=== PATIENT | female | born 1940 | race Caucasian/White ===

== ENCOUNTER → 2020-03-09 | Outpatient (CLI) | payer MEDICARE ==
--- NOTE | 2020-03-11 15:18 | PE ---
Nuclear medicine PET/CT HISTORY: Pancreatic carcinoma, initial Patient received 11.5 mCi F-18 FDG intravenously, delayed scanning was performed from the skull base to the mid thighs. Localization and attenuation correction CT scan was performed. Chest and neck: There is no suspicious uptake. Patient is cachectic. No cervical or supraclavicular a denopathy. No mediastinal, axillary, hilar adenopathy. Coronary artery calcifications are present. No pleural or pericardial effusion. No evident lung mass. ABDOMEN: Extensive pneumobilia is present. There is a stent present along the common bile duct. Ascit es is noted. Abnormal uptake noted within the pancreas corresponding to patient's pancreatic mass. Hy podensity are present within the colon may be due to radio dense medications or prior contrast study. Lack of intravenous abdominal fat may limit evaluation. Some uptake is noted in the suprapubic regio n which could possibly be related to urine activity. Osseous structures show no suspicious uptake. IMPRESSION: Findings compatible with patient's history of pancreatic carcinoma.
== END | disposition home or self-care (01) ==
LOC: RADPETMAIN 15:46
PROVIDERS: ATTEND Internal Medicine Hematology & Oncology
DX: C25.7 Malignant neoplasm of other parts of pancreas (principal)
CPT/HCPCS: 78815; A9552

== ENCOUNTER 2020-04-24 12:15 | Inpatient (IN) | payer MEDICARE ==
[2020-04-24] MEDS ORDERED: SODIUM CHLORIDE 0.9% 1,000 ML IV STA (12:48)
--- NOTE | 2020-04-24 12:51 | ED ---
General Adult HPI - General Chief complaint: Weakness Stated complaint: Weakness Time Seen by Provider: 04/24/20 12:20 Source: patient, EMS, RN notes reviewed, old records reviewed Mode of arrival: EMS Limitations: physical limitation - History of Present Illness Initial comments: This is a 79-year-old female who presents emergency department with past medical history of pancreatitis cancer. Patient has chemotherapy times one so far but she has become so weak that she can't take her second chemotherapy. Patient has not had no nausea occasional diarrhea but none recently. Patient denies any chest pain difficulty breathing shortness of breath per patient denies any headache patient denies numbness or focal weakness. Patient denies abdominal pa in patient denies any recent injury or trauma. Patient's only complaint is that she is overall extremely weak. Patient is not eating or drinking much according to the son. Patient's had no recent fever chills or cough. - Related Data Home Medications Medication Instructions Recorded Confirmed Aspirin EC [Ecotrin Low Dose] 81 mg PO DAILY 04/24/20 04/24/20 Atorvastatin Calcium [Lipitor] 20 mg PO DAILY 04/24/20 04/24/20 Lidocaine-Prilocaine Cream [Emla 1 applic TOPICAL DAILY 04/24/20 04/24/20 Cream 2.5%/2.5%] Metoprolol Succinate (ER) [Toprol 25 mg PO BID 04/24/20 04/24/20 Xl] amLODIPine [Norvasc] 2.5 mg PO DAILY 04/24/20 04/24/20 Allergies Allergy/AdvReac Type Severity Reaction Status Date / Time No Known Allergies Allergy Verified 04/24/20 13:39 Review of Systems ROS Statement: Those systems with pertinent positive or pertinent negative responses have been documented in the HPI. ROS Other: All systems not noted in ROS Statement are negative. Past Medical History Past Medical History: Hyperlipidemia, Hypertension Additional Past Medical History / Comment(s): pancreatic cancer History of Any Multi-Drug Resistant Organisms: None Reported Past Surgical History: Cholecystectomy, Hysterectomy Past Psychological History: No Psychological Hx Reported Smoking Status: Current every day smoker Past Alcohol Use History: None Reported Past Drug Use History: None Reported General Exam - General Exam Comments Initial Comments: GENERAL: Patient is cachectic. Patient is nontoxic and well-hydrated and is in no acute distress. ENT: Neck is soft and supple. No significant lymphadenopathy is noted. Oropharynx is clear. Moist mucous membranes. Neck has full range of motion without eliciting any pain. EYES: The sclera were anicteric and conjunctiva were pink and moist. Extraocular movements were intact and pupils were equal round and reactive to light. Eyelids were unremarkable. PULMONARY: Unlabored respirations. Good breath sounds bilaterally. No audible rales rhonchi or wheezing was noted. CARDIOVASCULAR: There is a regular rate and rhythm without any murmurs gallops or rubs. ABDOMEN: Soft and nontender with normal bowel sounds. SKIN: Skin is clear with no lesions or rashes and otherwise unremarkable. NEUROLOGIC: Patient is alert and oriented x3. Cranial nerves II through XII are grossly intact. Motor and sensory are also intact. Normal speech, volume and content. Symmetrical smile. MUSCULOSKELETAL: Normal extremities with adequate strength and full range of motion. LYMPHATICS: No significant lymphadenopathy is noted PSYCHIATRIC: Normal psychiatric evaluation. Limitations: physical limitation Course Vital Signs 04/24/20 04/24/20 12:18 15:00 Temperature 97.8 F 96 F L Pulse Rate 74 88 Respiratory 18 18 Rate Blood Pressure 107/79 112/91 O2 Sat by Pulse 95 98 Oximetry Medical Decision Making - Medical Decision Making EKG shows normal sinus rhythm at 93 bpm HI interval is 142 QRS is 146 QT interval 432 2 TC is 537. Patient's EKG shows a left bundle branch block Chest x-ray shows bilateral pleural effusions and possible infiltrate. I started the patient 2 g of Rocephin. Patient's straight catheter patient received an initial 1 L of fluid she will be receiving more fluid on the floor. [facility] the patient wrote admitting orders. - Lab Data Result diagrams: 04/24/20 13:03 04/24/20 13:03 Lab Results 04/24/20 04/24/20 04/24/20 Range/Units 13:03 13:03 13:03 WBC 17.2 H (3.8-10.6) k/uL RBC 3.49 L (3.80-5.40) m/uL Hgb 11.6 (11.4-16.0) gm/dL Hct 32.6 L (34.0-46.0) % MCV 93.4 (80.0-100.0) fL MCH 33.1 (25.0-35.0) pg MCHC 35.4 (31.0-37.0) g/dL RDW 14.6 (11.5-15.5) % Plt Count 124 L (150-450) k/uL MPV 8.4 Neutrophils % 94 % Lymphocytes % 3 % Monocytes % 2 % Eosinophils % 0 % Basophils % 1 % Neutrophils # 16.2 H (1.3-7.7) k/uL Lymphocytes # 0.5 L (1.0-4.8) k/uL Monocytes # 0.3 (0-1.0) k/uL Eosinophils # 0.0 (0-0.7) k/uL Basophils # 0.1 (0-0.2) k/uL PT 11.2 (9.0-12.0) sec INR 1.1 (<1.2) APTT 22.1 (22.0-30.0) sec Sodium 137 (137-145) mmol/L Potassium 3.2 L (3.5-5.1) mmol/L Chloride 104 (98-107) mmol/L Carbon Dioxide 31 H (22-30) mmol/L Anion Gap 2 mmol/L BUN 64 H (7-17) mg/dL Creatinine 0.79 (0.52-1.04) mg/dL Est GFR (CKD-EPI)AfAm 84 (>60 ml/min/1.73 sqM) Est GFR (CKD-EPI)NonAf 73 (>60 ml/min/1.73 sqM) Glucose 96 (74-99) mg/dL Plasma Lactic Acid [place] (0.7-2.0) mmol/L Calcium 8.2 L (8.4-10.2) mg/dL Magnesium 1.9 (1.6-2.3) mg/dL Total Bilirubin 0.8 (0.2-1.3) mg/dL AST 43 H (14-36) U/L ALT 27 (4-34) U/L Alkaline Phosphatase 103 (38-126) U/L Troponin I (0.000-0.034) ng/mL Total Protein 4.8 L (6.3-8.2) g/dL Albumin 2.5 L (3.5-5.0) g/dL Amylase <30 L (30-110) U/L Lipase 19 L (23-300) U/L Urine Color Urine Appearance (Clear) Urine pH (5.0-8.0) Ur Specific [place] (1.001-1.035) Urine Protein (Negative) Urine Glucose (UA) (Negative) Urine Ketones (Negative) Urine Blood (Negative) Urine Nitrite (Negative) Urine Bilirubin (Negative) Urine Urobilinogen (<2.0) mg/dL Ur Leukocyte Esterase (Negative) 04/24/20 04/24/20 04/24/20 Range/Units 13:03 13:03 14:20 WBC (3.8-10.6) k/uL RBC (3.80-5.40) m/uL Hgb (11.4-16.0) gm/dL Hct (34.0-46.0) % MCV (80.0-100.0) fL MCH (25.0-35.0) pg MCHC (31.0-37.0) g/dL RDW (11.5-15.5) % Plt Count (150-450) k/uL MPV Neutrophils % % Lymphocytes % % Monocytes % % Eosinophils % % Basophils % % Neutrophils # (1.3-7.7) k/uL Lymphocytes # (1.0-4.8) k/uL Monocytes # (0-1.0) k/uL Eosinophils # (0-0.7) k/uL Basophils # (0-0.2) k/uL PT (9.0-12.0) sec INR (<1.2) APTT (22.0-30.0) sec Sodium (137-145) mmol/L Potassium (3.5-5.1) mmol/L Chloride (98-107) mmol/L Carbon Dioxide (22-30) mmol/L Anion Gap mmol/L BUN (7-17) mg/dL Creatinine (0.52-1.04) mg/dL Est GFR (CKD-EPI)AfAm (>60 ml/min/1.73 sqM) Est GFR (CKD-EPI)NonAf (>60 ml/min/1.73 sqM) Glucose (74-99) mg/dL Plasma Lactic Acid [place] 1.8 (0.7-2.0) mmol/L Calcium (8.4-10.2) mg/dL Magnesium (1.6-2.3) mg/dL Total Bilirubin (0.2-1.3) mg/dL AST (14-36) U/L ALT (4-34) U/L Alkaline Phosphatase (38-126) U/L Troponin I 0.016 (0.000-0.034) ng/mL Total Protein (6.3-8.2) g/dL Albumin (3.5-5.0) g/dL Amylase (30-110) U/L Lipase (23-300) U/L Urine Color Yellow Urine Appearance Clear (Clear) Urine pH 5.5 (5.0-8.0) Ur Specific [place] 1.021 (1.001-1.035) Urine Protein Trace H (Negative) Urine Glucose (UA) Negative (Negative) Urine Ketones Negative (Negative) Urine Blood Negative (Negative) Urine Nitrite Negative (Negative) Urine Bilirubin Negative (Negative) Urine Urobilinogen <2.0 (<2.0) mg/dL Ur Leukocyte Esterase Negative (Negative) Disposition Clinical Impression: Pneumonia, Pleural effusion, Dehydration Disposition: ADMITTED IP TO THIS [facility] Referrals: Erica Monroe DO [Primary Care Provider] - 1-2 days Time of Disposition: 15:08
[2020-04-24 13:24] LABS: Basophils # (A) 0.1 k/uL (0-0.2); Basophils % (A) 1 %; Eosinophils % (A) 0 %; HCT 32.6 % (34.0-46.0); HGB 11.6 gm/dL (11.4-16.0); Lymphocytes # (A) 0.5 k/uL (1.0-4.8); Lymphocytes % (A) 3 %; MCH 33.1 pg (25.0-35.0); MCHC 35.4 g/dL (31.0-37.0); MCV 93.4 fL (80.0-100.0); Mean Platelet Volume 8.4; Monocytes # (A) 0.3 k/uL (0-1.0); Monocytes % (A) 2 %; Neutrophils # (A) 16.2 k/uL (1.3-7.7); Neutrophils % (A) 94 %; Platelet Count 124 k/uL (150-450); RBC 3.49 m/uL (3.80-5.40); RDW 14.6 % (11.5-15.5); WBC 17.2 k/uL (3.8-10.6)
--- NOTE | 2020-04-24 13:34 | XR ---
EXAMINATION TYPE: XR chest 2V DATE OF EXAM: 04/24/2020 COMPARISON: PET/CT 03/09/2020 HISTORY: Weakness, pancreatic cancer TECHNIQUE: Frontal and lateral views of the chest are obtained. FINDINGS: Blunting the posterior costophrenic angles is present. There is underlying emphysema. Aort a is dense. There is a port in the right pectoral region coursing via right jugular approach, distal tip overlying superior vena cava. No evident pneumothorax. Heart size is within normal limits. Biliar y stent is in place. Surgical clips are present in the right upper quadrant. IMPRESSION: Interval development of bilateral pleural effusions and probable associated atelectasis, correlate to exclude pneumonia.
[2020-04-24 13:39] LABS: INR 1.1 (<1.2); Partial Thromboplastin Time 22.1 sec (22.0-30.0); Prothrombin Time 11.2 sec (9.0-12.0)
[2020-04-24 13:42] LABS: ALT 27 U/L (4-34); AST 43 U/L (14-36); African American GFR (CKD) 84 (>60 ml/min/1.73 sqM); Albumin 2.5 g/dL (3.5-5.0); Alkaline Phosphatase 103 U/L (38-126); Amylase <30 U/L (30-110); Anion Gap 2 mmol/L; Blood Urea Nitrogen 64 mg/dL (7-17); Calcium 8.2 mg/dL (8.4-10.2); Carbon Dioxide 31 mmol/L (22-30); Chloride 104 mmol/L (98-107); Glucose 96 mg/dL (74-99); Lipase 19 U/L (23-300); Magnesium 1.9 mg/dL (1.6-2.3); Non-African American GFR(CKD) 73 (>60 ml/min/1.73 sqM); Potassium 3.2 mmol/L (3.5-5.1); Sodium 137 mmol/L (137-145); Total Bilirubin 0.8 mg/dL (0.2-1.3); Total Protein 4.8 g/dL (6.3-8.2)
[2020-04-24 14:44] LABS: Appearance,Urine Clear (Clear); Bilirubin,Urine Negative (Negative); Blood,Urine Negative (Negative); Color,Urine Yellow; Glucose,Urine (UA) Negative (Negative); Ketones,Urine Negative (Negative); Leukocyte Esterase,Urine Negative (Negative); Nitrite,Urine Negative (Negative); PH, Urine 5.5 (5.0-8.0); Protein,Urine Trace (Negative); Specific Gravity,Urine 1.021 (1.001-1.035); Urobilinogen,Urine <2.0 mg/dL (<2.0)
[2020-04-24] MEDS ORDERED: cefTRIAXone IN SWFI 1,000 MG/10 ML SYRINGE IVP STA (14:58)
[2020-04-24] MEDS ORDERED: AZITHROMYCIN 500 MG in SODIUM CHLORIDE 0.9% 250 ML IVPB STA (15:10)
[2020-04-24] MEDS ORDERED: PNEUMONIA PROTOCOL UTILIZED 1 EACH MISC PO PRN (15:10)
[2020-04-24] MEDS: SODIUM CHLORIDE 0.9% 1,000 ML IV SCH (16:17)
[2020-04-24] MEDS ORDERED: IOPAMIDOL CONTRAST (ORAL USE) VIAL PO PRN (19:12)
[2020-04-24] MEDS ORDERED: Phosphorus Replacement Protoco 1 EACH MISC MISCELLANE PRN (19:14)
[2020-04-24] MEDS ORDERED: ALPRAZolam 0.25 MG TAB PO PRN (19:14)
[2020-04-24] MEDS ORDERED: Magnesium Replacement Protocol 1 EACH MISC MISCELLANE PRN (19:14)
[2020-04-24] MEDS: METOPROLOL SUCCINATE (ER) 25 MG TAB.ER.24H PO SCH (20:13)
[2020-04-24] MEDS: PANTOPRAZOLE 40 MG/10 ML VIAL IVP SCH (20:14)
[2020-04-24] MEDS: CEFEPIME 2 GM in SODIUM CHLORIDE 0.9% 100 ML IVPB SCH (20:14)
[2020-04-24] MEDS: HEPARIN SODIUM,PORCINE 5,000 UNIT/ML 1 ML VIAL SQ SCH (20:15)
--- NOTE | 2020-04-24 20:22 | CT ---
EXAMINATION TYPE: CT ChestAbdPelvis wo con DATE OF EXAM: 04/24/2020 COMPARISON: 03/09/2020 HISTORY: weakness, confusion. current pancreatic ca pt. CT DLP: 374.1 mGycm Automated exposure control for dose reduction was used. Images obtained from the thoracic inlet to the floor the pelvis with no contrast. There are bilateral pleural effusions. There is bilateral lower lobe pulmonary infiltrates and atelec tasis. Thoracic aorta is atheromatous. Heart size is normal. There are no hilar masses. Liver is relatively small and irregular. Spleen is intact. Stomach is intact. There is massive abdomi nal ascites. There is biliary stent noted. There is some air in the anterior biliary tree. The bile d ucts are not dilated. There is increased density in the anterior aspect of the pancreas consistent wi th mass at the pancreatic head that measures approximately 4 cm. Stomach has normal size. The kidneys show no hydronephrosis. There is no sign of retroperitoneal adenopathy. Exam limited by l ack of contrast. Bladder distends smoothly. There is low attenuation in the subcutaneous tissues cons istent with anasarca. Thoracic and lumbar spine appear intact. There is no compression fracture. Ther e is multilevel spondylotic changes. Sternum is intact. The bony pelvis is intact. IMPRESSION: Moderate-sized bilateral pleural effusions are new compared to old exam. Bilateral lower lobe pulmona ry infiltrates and atelectasis are new compared to old exam. Massive abdominal ascites probably increased compared to old exam. Pancreatic head mass unchanged. Singh bcutaneous edema and anasarca appear new.
--- NOTE | 2020-04-24 22:54 | HP ---
HISTORY AND PHYSICAL CHIEF COMPLAINT: Weakness and weight loss. HISTORY OF PRESENT ILLNESS: This 79-year-old woman with a past medical history of multiple medical problems including history of pancreatic cancer, obtaining chemotherapy, hypertension, hyperlipidemia, history of cholecystectomy, hysterectomy, being followed by Dr. Erica Monroe and Dr. Ivory in the outpatient setting, was apparently complaining of significant weight loss and weakness. The patient was so weak that the patient is unable to get chemotherapy. Patient also nauseated. Patient lost about 80 pounds and the patient came to [facility] and was admitted for further evaluation and treatment. Patient is extremely emaciated with BMI of 14.6, and the patient admitted for further evaluation and treatment. White count is elevated to 17.2. Potassium is 3.2. Patient is started on empiric antibiotic at this time. The UA is unremarkable. The chest x- ray which I reviewed personally showed some bilateral pleural effusion, probably associated atelectasis also. Pneumonia needs to be correlated. The white count is also elevated. There is no history of fever, rigors, chills at this time. No history of contact with COVID. Patient has been isolated for 8 months, according to her. PAST MEDICAL HISTORY: History of hypertension, hyperlipidemia, history of pancreatic cancer. MEDICATIONS ARE: Ecotrin, metoprolol, EMLA cream, Lipitor. Norvasc. ALLERGIES: None. FAMILY HISTORY: No history of heart disease or strokes in family. SOCIAL HISTORY: History of smoking. REVIEW OF SYSTEMS: ENT: No diminished vision. No diminished hearing. CARDIOVASCULAR as mentioned earlier. RESPIRATION as mentioned earlier. GI: As mentioned earlier. no dysuria. Nervous System as mentioned earlier. Allergy/Immunology: No asthma or hayfever. MUSCULOSKELETAL: As mentioned earlier. HEMATOLOGY/ONCOLOGY as mentioned earlier. ENDOCRINE: No history of diabetes or hypothyroid. Constitutional: As mentioned earlier. Dermatology negative. Rheumatology negative. Psychiatric: As mentioned earlier. PHYSICAL EXAMINATION: Alert and oriented x3. Pulse is 88. Blood pressure 129/80, respiration 18, temperature 98 degrees. Pulse ox 98% on 2 L. HEENT: Conjunctivae normal. Oral mucosa moist. NECK is no jugular venous distention. No carotid bruit. No lymph node enlargement. CARDIOVASCULAR system: S1, S2 muffled. RESPIRATION: Breath sounds diminished in the bases. A few scattered rhonchi and crackles. ABDOMEN is scaphoid. Mild diffuse distention present. No mass palpable. LEGS: No edema. No swelling. NERVOUS SYSTEM: Higher functions as mentioned earlier. Moves all 4 limbs. No focal motor or sensory deficits. LYMPHATICS: No lymph nodes palpable in the neck, axillae or groin. SKIN: No ulcer. No rash and no bleeding. JOINTS: No active deforming arthropathy. LABS: At this time shows WBC 7.2, hemoglobin 11.7, sodium 137, potassium 3.2, albumin is 2.5, total protein is 4.8. ASSESSMENT: 1. Significant wasting and weakness and dehydration secondary to pancreatic cancer. 2. Pancreatic cancer, on chemotherapy. 3. Bilateral pleural effusion and possibly pneumonia. 4. Increased WBC, possible sepsis. 5. Thrombocytopenia. 6. Hypokalemia. 7. Increased BUN. 8. Hypoalbuminemia with severe protein calorie malnutrition with body mass index of 14.6 and increased AST. 9. Hypertension. 10.Hyperlipidemia. 11.History of cholecystectomy. 12.History of nicotine dependence. 13.FULL CODE. RECOMMENDATIONS AND DISCUSSION: This 79-year-old woman who presented with multiple complex medical issues, we will monitor the patient closely, continue the current medications, management and symptomatic treatment. Initiate broad-spectrum IV antibiotics. Otherwise obtain cultures. I would recommend a CT scan of chest, abdomen and pelvis and consult Dr. Ivory. Prognosis guarded because of multiple complex medical issues. Further recommendations to follow. A copy of dictation forwarded to Dr. Erica Monroe who is the primary care physician. See orders for details. DVT prophylaxis. Home medications will be continued. MMODL / IJN: [id number] /
[2020-04-25] MEDS: SODIUM CHLORIDE 0.9% 1,000 ML IV SCH ×2 (00:36→12:23)
[2020-04-25 01:04] LABS: ABG Base Excess 1.5 mmol/L; ABG HCO3 25 mmol/L (21-25); ABG Oxygen Saturation 99.8 % (94-97); ABG PCO2 37 mmHg (35-45); ABG PH 7.45 (7.35-7.45); ABG PO2 165 mmHg (83-108); ABG TCO2 27 mmol/L (19-24); Allen Test Performed? Yes
[2020-04-25] MEDS: CEFEPIME 2 GM in SODIUM CHLORIDE 0.9% 100 ML IVPB SCH ×2 (05:00→11:39)
[2020-04-25 05:40] LABS: Basophils # (A) 0.1 k/uL (0-0.2); Basophils % (A) 0 %; Eosinophils # (A) 0.1 k/uL (0-0.7); Eosinophils % (A) 0 %; HCT 34.5 % (34.0-46.0); HGB 11.8 gm/dL (11.4-16.0); Lymphocytes # (A) 0.6 k/uL (1.0-4.8); Lymphocytes % (A) 3 %; MCH 32.1 pg (25.0-35.0); MCHC 34.2 g/dL (31.0-37.0); MCV 93.9 fL (80.0-100.0); Mean Platelet Volume 9.2; Monocytes # (A) 0.3 k/uL (0-1.0); Monocytes % (A) 1 %; Neutrophils # (A) 19.7 k/uL (1.3-7.7); Neutrophils % (A) 95 %; Platelet Count 136 k/uL (150-450); RBC 3.67 m/uL (3.80-5.40); RDW 15.3 % (11.5-15.5); WBC 20.8 k/uL (3.8-10.6)
[2020-04-25] MEDS: ASPIRIN 81 MG PO SCH (08:25)
[2020-04-25] MEDS: ATORVASTATIN 20 MG TAB PO SCH (08:25)
[2020-04-25] MEDS: HEPARIN SODIUM,PORCINE 5,000 UNIT/ML 1 ML VIAL SQ SCH ×2 (08:25→21:13)
[2020-04-25] MEDS: PANTOPRAZOLE 40 MG/10 ML VIAL IVP SCH ×2 (08:26→21:12)
[2020-04-25] MEDS: METOPROLOL SUCCINATE (ER) 25 MG TAB.ER.24H PO SCH ×2 (08:26→21:13)
--- NOTE | 2020-04-25 08:43 | XR ---
EXAMINATION TYPE: XR chest 1V DATE OF EXAM: 04/25/2020 COMPARISON: 04/24/2020 HISTORY: Shortness of breath TECHNIQUE: Single frontal view of the chest is obtained. FINDINGS: There is diffuse bilateral pleural-parenchymal changes which appears progressed from the p rior exam. Mediport catheter seen with the tip overlying the SVC. No sizable pneumothorax. Hyperinfla tion suggests COPD. Diffuse osteopenia with arthropathy of the shoulders. Hypertrophic and degenerati ve changes of the spine. IMPRESSION: 1. COPD with diffuse bilateral pleural-parenchymal changes correlate for CHF versus diffuse pneumonia .
[2020-04-25] MEDS: LIDOCAINE-PRILOCAINE 2.5-2.5% CREAM 5 GM TUBE TOPICAL SCH (09:29)
[2020-04-25 10:56] LABS: African American GFR (CKD) 101.2 (60.0-200.0); Anion Gap 12.8 mmol/L (4.00-12.00); BUN/Creat Ratio 118.33 Ratio (12.00-20.00); Calcium 8.2 mg/dL (8.7-10.3); Carbon Dioxide 22.2 mmol/L (21.6-31.8); Magnesium 1.8 mg/dL (1.5-2.4); Non-African American GFR(CKD) 87.3 (60.0-200.0); Potassium 3.7 mmol/L (3.5-5.5)
[2020-04-25 11:12] LABS: Glucose,Whole Blood 66 mg/dL (75-99)
[2020-04-25] MEDS: THIAMINE 100 MG TAB PO SCH (11:35)
[2020-04-25] MEDS: MULTIVITAMINS, THERA 1 EACH TAB PO SCH (11:35)
[2020-04-25] MEDS: FOLIC ACID 1 MG TAB PO SCH (11:35)
[2020-04-25 11:37] LABS: Glucose,Whole Blood 61 mg/dL (75-99)
[2020-04-25] MEDS: MEGESTROL 400 MG/10 ML CUP PO SCH (11:37)
[2020-04-25] MEDS: DEXTROSE 5%-0.9% NACL 1,000 ML IV SCH (11:50)
[2020-04-25 11:55] LABS: Glucose,Whole Blood 61 mg/dL (75-99)
[2020-04-25 12:16] LABS: Glucose,Whole Blood 49 mg/dL (75-99)
[2020-04-25 12:20] LABS: Glucose,Whole Blood 58 mg/dL (75-99)
[2020-04-25 12:37] LABS: Glucose,Whole Blood 228 mg/dL (75-99)
[2020-04-25 13:15] LABS: Glucose,Whole Blood 76 mg/dL (75-99)
[2020-04-25 15:03] LABS: Albumin 3.1 g/dL (3.80-4.90); Calcium 7.6 mg/dL (8.7-10.3); Total Bilirubin 0.7 mg/dL (0.3-1.2); Total Protein 4.7 g/dL (6.2-8.2)
--- NOTE | 2020-04-25 16:37 | CT ---
EXAMINATION TYPE: CT brain wo con DATE OF EXAM: 04/25/2020 COMPARISON: None HISTORY: 79-year-old female with confusion TECHNIQUE: Examination was done in axial plane without intravenous contrast. Coronal and sagittal r econstructions performed. CT DLP: 1165 mGycm Automated exposure control for dose reduction was used. FINDINGS: There is no evidence of acute intracranial hemorrhage, acute ischemic changes, mass, mass-effect, or extra-axial fluid collection. There is no effacement of cerebral sulci or basal subarachnoid cister ns. Mild ventricular prominence secondary to central cerebral atrophy. Additional mild to moderate ce rebral cortical atrophy. Mild to moderate patchy periventricular white matter hypodensities in both c erebral hemispheres. Benign basal ganglionic calcifications on both sides. At this current calcificat ions within the carotid siphons. Partially empty sella. There is no midline shift. Sylvester-white matter distinction is preserved. Paranasal sinuses and mastoid air cells are well pneumatized. Slight leftward nasal septal deviation. Orbits and globes are intact. IMPRESSION: Mild to moderate generalized atrophy and patchy changes of chronic small vessel ischemic disease. No acute intracranial abnormality seen.
[2020-04-25] MEDS: AZITHROMYCIN 500 MG TAB PO SCH ×2 (17:11→17:12)
[2020-04-25] MEDS: FUROSEMIDE 10 MG/ML 4 ML VIAL IV SCH (17:11)
[2020-04-25 17:19] LABS: Glucose,Whole Blood 149 mg/dL (75-99)
--- NOTE | 2020-04-25 18:19 | PN ---
PROGRESS NOTE DATE OF SERVICE: 04/25/2020 This 79-year-old woman who was admitted with significant wasting and weakness and dehydration secondary to pancreatic cancer, is being closely monitored. The patient continues to be confused also. Multiple consultants following the patient closely. Abdominal paracentesis is also planned at this time. The CT scan of the brain showed [id number] atrophy without any acute changes. The most recent chest x-ray which was personally reviewed by me showed COPD with diffuse bilateral pleural parenchymal changes also. The patient is extremely emaciated. Body mass index of 14.6. p.o. intake also found to be extremely low. Discussed with dietitian. Chest x-ray showed some CHF also. Past medical history reviewed. REVIEW OF SYSTEMS: Cardiovascular system: No angina or palpitations. Respiration: As mentioned earlier. GI as mentioned earlier. : No dysuria. NERVOUS SYSTEM: As mentioned earlier. CURRENT MEDICATIONS: Reviewed and include: Xanax. Aspirin. Lipitor, Zithromax, Cefepime, folic acid, Megace, Protonix, vitamin B1. PHYSICAL EXAM: Patient is alert and oriented x2. Pulse 103. Blood pressure is 93/61, respirations 16, temp is normal. Pulse ox 94% on 4 L. HEENT: Conjunctivae normal. NECK: No JVD. CARDIOVASCULAR: S1, S2 muffled. RESPIRATION: Breath sounds diminished in the bases. Bilateral scattered rhonchi and crackles. ABDOMEN: Soft. Nontender. LEGS are no edema. No swelling. LABS: Accu-Cheks are WBC 20.8 and sodium 142, potassium 3.7, and total protein is 4.7. Calcium is 7.6. Covid -19 is negative. Troponin 0.016. ASSESSMENT: 1. Significant wasting and weakness and dehydration, secondary to pancreatic cancer. 2. Pancreatic cancer, on chemotherapy. 3. Bilateral pleural effusion, possible pneumonia. 4. Rule out congestive heart failure. 5. Increased WBC, possible sepsis. 6. Thrombocytopenia. 7. Hypokalemia. 8. Increased BUN. 9. Hypoalbuminemia with severe protein calorie malnutrition with body mass index of 14.6. 10.Increased AST. 11.Hypertension. 12.Gait dysfunction. 13.Hyperlipidemia. 14.Cholecystectomy. 15.History of nicotine dependence. 16.Change in mental status, acute metabolic encephalopathy multifactorial. 17.FULL CODE. RECOMMENDATIONS AND DISCUSSION: This 79-year-old gentleman woman presented with multiple medical issues, we will monitor the patient closely, continue the current medications, management and symptomatic treatment. Otherwise at this time, continue with broad-spectrum IV antibiotics. I would also recommend BNP and 2D echo with Doppler to rule out the possibility of CHF. Otherwise, I would recommend stop IV fluids. Lasix 20 mg. Continue to monitor. Guarded prognosis because of multiple complex medical issues. Further recommendations to follow. MMODL / IJN: [id number] /
[2020-04-25 20:07] LABS: Glucose,Whole Blood 235 mg/dL (75-99)
[2020-04-25 22:04] LABS: Appearance,BF Clear; Color,BF Colorless; Nucleated Cells, Body Fluid 16 /uL; RBC, Body Fluid 72 /uL
--- NOTE | 2020-04-25 22:57 | P.CONS ---
History of Present Illness - Reason for Consult Consult date: 04/25/20 Cancer Requesting physician: Abhishek Conway - Chief Complaint Decreased appetite, weakness - History of Present Illness Ms Delacruz is a pleasant white female, with overall well-controlled medical problems and poor performance status at baseline. The patient states that she is mostly confined to home since 08/11 because of the coronal virus related lockdown. She states that during this period activity level was less than and her appetite had diminished. She attributed this to lack of activity and resultant decreased appetite. She states that she went for her regular mammogram on 02/09/20. The mammogram itself was negative. The patient, however, that she had lost significant amount of body fat from her breast, as well as the rest of the body. She stated that she was actually having some pain and discomfort in her legs on walking, which was new for her. She addressed this with her primary care physician, Dr. Emerson, labs on 02/14/20 were performed, showing elevated bilirubin of 2.5, alkaline phosphatase of 711, ALT of 84 and AST of 64. Creatinine was 0.6. Chest x-ray from 02/14/20 was negative. She had CT of the abdomen and pelvis on 02/17/20 that showed diffuse intra-and extrahepatic biliary ductal dilatation with moderate dilation of the pancreatic duct along the body and tail segments. There was a 1.9 x 2.5 x 2.4 cm mass in the region of the pancreatic head. Referral was made to his office. At that time. The patient was referred to [facility] for an EUS and ERCP. She was found to have a deformity in the gastric antrum with congested and thickened folds. Pancreatic mass measured 3.5 x 3.2 cm with encasement of the SMA and celiac trunk as well as abutment of the portal vein. Biopsies were positive for adenocarcinoma. The patient also had stent placement to relieve significant distal CBD pancreatic duct obstruction. She was seen for initial consult on 03/16/20. Prior to this visit she had a PET scan done on 03/09/20. This showed uptake only in the pancreatic head mass with no evidence of metastatic disease. She denied any prior history of malignancy. Performance status prior to the onset of current symptoms was normal. She has a history of smoking about half-1 pack per day, for greater than 50 years. after detailed discussion of options, the patient opted for aggressive chemotherapy with mFOLFIRINOX. After port placement, she started then on 04/09/20 and is status post 1 cycle. She initially tolerated well. Last seen in office on 04/17/[address] Ivory. She presents with increased intolerance post treatment, decreased appetite, weakness, fatigue. Increased Abdominal Ascites on imaging. Review of Systems All systems: negative Constitutional: Reports as per HPI Past Medical History Past Medical History: Hyperlipidemia, Hypertension Additional Past Medical History / Comment(s): pancreatic cancer History of Any Multi-Drug Resistant Organisms: None Reported Past Surgical History: Cholecystectomy, Hysterectomy Past Anesthesia/Blood Transfusion Reactions: No Reported Reaction Past Psychological History: No Psychological Hx Reported Smoking Status: Former smoker Past Alcohol Use History: None Reported Past Drug Use History: None Reported - Past Family History Father Family Medical History: No Reported History Son(s) Family Medical History: No Reported History Medications and Allergies Home Medications Medication Instructions Recorded Confirmed Type Aspirin EC [Ecotrin Low Dose] 81 mg PO DAILY 04/24/20 04/24/20 History Atorvastatin Calcium [Lipitor] 20 mg PO DAILY 04/24/20 04/24/20 History Lidocaine-Prilocaine Cream [Emla 1 applic TOPICAL DAILY 04/24/20 04/24/20 History Cream 2.5%/2.5%] Metoprolol Succinate (ER) [Toprol 25 mg PO BID 04/24/20 04/24/20 History Xl] amLODIPine [Norvasc] 2.5 mg PO DAILY 04/24/20 04/24/20 History Allergies Allergy/AdvReac Type Severity Reaction Status Date / Time No Known Allergies Allergy Verified 04/24/20 13:39 Physical Exam Vitals: Vital Signs Temp Pulse Pulse Resp BP BP BP 04/25/20 20:00 97.6 F 115 H 18 101/72 04/25/20 18:05 105 H 127/86 04/25/20 17:50 103 H 130/85 04/25/20 17:35 107 H 114/71 04/25/20 17:20 109 H 138/83 04/25/20 17:05 97.4 F L 98 18 118/70 04/25/20 15:45 103 H 16 93/61 04/25/20 15:31 16 90/65 04/25/20 15:15 98 16 91/67 04/25/20 15:00 104 H 16 89/59 04/25/20 14:04 97.7 F 101 H 18 129/80 04/25/20 10:04 95/52 04/25/20 09:41 97.4 F L 04/25/20 07:42 96.4 F L 90 17 88/63 04/25/20 04:25 98 16 116/80 04/25/20 03:00 96.6 F L 87 16 119/80 04/25/20 02:10 96.8 F L 97 16 106/83 04/25/20 01:24 99.5 F 85 16 96/68 04/25/20 00:11 95.5 F L 04/24/20 23:16 89 16 106/86 Pulse Ox 04/25/20 20:00 99 04/25/20 18:05 100 04/25/20 17:50 04/25/20 17:35 04/25/20 17:20 04/25/20 17:05 04/25/20 15:45 95 04/25/20 15:31 04/25/20 15:15 95 04/25/20 15:00 94 L 04/25/20 14:04 04/25/20 10:04 04/25/20 09:41 04/25/20 07:42 95 04/25/20 04:25 93 L 04/25/20 03:00 93 L 04/25/20 02:10 98 04/25/20 01:24 97 04/25/20 00:11 04/24/20 23:16 Intake and Output 04/25/20 04/25/20 04/25/20 06:59 14:59 22:59 Other: Voiding Method Indwelling Catheter Weight 38.555 kg - Constitutional General appearance: cooperative - EENT Eyes: EOMI, PERRLA ENT: hard of hearing, NA/AT - Respiratory Respiratory: bilateral: diminished - Cardiovascular Rhythm: regularly irregular leg Peripheral Edema: bilateral: 1+ - Gastrointestinal General gastrointestinal: distended, soft, tenderness - Integumentary Integumentary: pale - Neurologic non focal - Musculoskeletal Musculoskeletal: generalized weakness Results CBC & Chem 7: 04/25/20 05:13 04/25/20 05:13 Labs: Abnormal Lab Results - Last 24 Hours (Table) 04/25/20 04/25/20 04/25/20 Range/Units 00:58 05:13 05:13 WBC 20.8 H (3.8-10.6) k/uL RBC 3.67 L (3.80-5.40) m/uL Plt Count 136 L (150-450) k/uL Neutrophils # 19.7 H (1.3-7.7) k/uL Lymphocytes # 0.6 L (1.0-4.8) k/uL ABG pO2 165 H (83-108) mmHg ABG Total CO2 27 H (19-24) mmol/L ABG O2 Saturation 99.8 H (94-97) % Anion Gap 12.80 H (4.00-12.00) mmol/L BUN 71.0 H (9.0-27.0) mg/dL BUN/Creatinine Ratio 118.33 H (12.00-20.00) Ratio Glucose 44 L* (70-110) mg/dL POC Glucose (mg/dL) (75-99) mg/dL Calcium 8.2 L (8.7-10.3) mg/dL AST (13-35) U/L Total Protein (6.2-8.2) g/dL Albumin (3.80-4.90) g/dL 04/25/20 04/25/20 04/25/20 Range/Units 05:13 11:11 11:35 WBC (3.8-10.6) k/uL RBC (3.80-5.40) m/uL Plt Count (150-450) k/uL Neutrophils # (1.3-7.7) k/uL Lymphocytes # (1.0-4.8) k/uL ABG pO2 (83-108) mmHg ABG Total CO2 (19-24) mmol/L ABG O2 Saturation (94-97) % Anion Gap (4.00-12.00) mmol/L BUN (9.0-27.0) mg/dL BUN/Creatinine Ratio (12.00-20.00) Ratio Glucose (70-110) mg/dL POC Glucose (mg/dL) 66 L 61 L (75-99) mg/dL Calcium 7.6 L (8.7-10.3) mg/dL AST 55 H (13-35) U/L Total Protein 4.7 L (6.2-8.2) g/dL Albumin 3.10 L (3.80-4.90) g/dL 04/25/20 04/25/20 04/25/20 Range/Units 11:53 12:06 12:18 WBC (3.8-10.6) k/uL RBC (3.80-5.40) m/uL Plt Count (150-450) k/uL Neutrophils # (1.3-7.7) k/uL Lymphocytes # (1.0-4.8) k/uL ABG pO2 (83-108) mmHg ABG Total CO2 (19-24) mmol/L ABG O2 Saturation (94-97) % Anion Gap (4.00-12.00) mmol/L BUN (9.0-27.0) mg/dL BUN/Creatinine Ratio (12.00-20.00) Ratio Glucose (70-110) mg/dL POC Glucose (mg/dL) 61 L 49 L 58 L (75-99) mg/dL Calcium (8.7-10.3) mg/dL AST (13-35) U/L Total Protein (6.2-8.2) g/dL Albumin (3.80-4.90) g/dL 04/25/20 04/25/20 04/25/20 Range/Units 12:35 17:16 20:06 WBC (3.8-10.6) k/uL RBC (3.80-5.40) m/uL Plt Count (150-450) k/uL Neutrophils # (1.3-7.7) k/uL Lymphocytes # (1.0-4.8) k/uL ABG pO2 (83-108) mmHg ABG Total CO2 (19-24) mmol/L ABG O2 Saturation (94-97) % Anion Gap (4.00-12.00) mmol/L BUN (9.0-27.0) mg/dL BUN/Creatinine Ratio (12.00-20.00) Ratio Glucose (70-110) mg/dL POC Glucose (mg/dL) 228 H 149 H 235 H (75-99) mg/dL Calcium (8.7-10.3) mg/dL AST (13-35) U/L Total Protein (6.2-8.2) g/dL Albumin (3.80-4.90) g/dL Microbiology - Last 24 Hours (Table) 04/24/20 15:45 Blood Culture Gram Stain - Preliminary Blood Blood Culture - Preliminary Gram Neg Bacilli 04/24/20 15:45 Blood Culture - Final Blood CT scan - abdomen: report reviewed CT scan - chest: report reviewed CT scan - pelvis: report reviewed Assessment and Plan (1) Pancreatic cancer Narrative/Plan: Status POst Cycle one of MFOLFIRINOX - Details of diagnosis and circumstances in HPI - Currently on hold until control of current symptoms Current Visit: Yes Status: Acute Code(s): C25.9 - MALIGNANT NEOPLASM OF PANCREAS, UNSPECIFIED SNOMED Code(s): 086658306 (2) Abdominal ascites Narrative/Plan: - Paracentesis today with Fluid for cytology, culture, and albumin Current Visit: Yes Status: Acute Code(s): R18.8 - OTHER ASCITES SNOMED Code(s): 440541529 Plan: Add Megace, continue on VTE PRophylaxis Re-assess in am after paracentesis if increased PO intake, if not then TPN to consider Feliz culture for underlying infectious process COntinue aggressive supportive care, hydration Physician Attest: I have completed the full history and physical and agree with above dictation. Dictated as a scribe
[2020-04-26] MEDS: CEFEPIME 2 GM in SODIUM CHLORIDE 0.9% 100 ML IVPB SCH ×2 (00:11→12:09)
[2020-04-26] MEDS: DEXTROSE 5%-0.9% NACL 1,000 ML IV SCH ×2 (02:30→16:29)
[2020-04-26 04:10] LABS: Total Protein, Body Fluid 230 mg/dL
[2020-04-26 04:26] LABS: Glucose, BF Source Ascites; Glucose, Body Fluid 118 mg/dL
[2020-04-26 06:22] LABS: Basophils # (A) 0.1 k/uL (0-0.2); Basophils % (A) 0 %; Eosinophils # (A) 0.1 k/uL (0-0.7); Eosinophils % (A) 0 %; HCT 28.5 % (34.0-46.0); Lymphocytes # (A) 0.5 k/uL (1.0-4.8); Lymphocytes % (A) 2 %; MCH 33.1 pg (25.0-35.0); MCHC 34.9 g/dL (31.0-37.0); MCV 94.8 fL (80.0-100.0); Mean Platelet Volume 8.7; Monocytes # (A) 0.3 k/uL (0-1.0); Monocytes % (A) 2 %; Neutrophils # (A) 20.9 k/uL (1.3-7.7); Neutrophils % (A) 95 %; Platelet Count 145 k/uL (150-450); RDW 14.8 % (11.5-15.5); WBC 22.1 k/uL (3.8-10.6)
[2020-04-26 06:43] LABS: HGB 9.9 gm/dL (11.4-16.0)
[2020-04-26 07:02] LABS: Glucose,Whole Blood 201 mg/dL (75-99)
[2020-04-26] MEDS: ASPIRIN 81 MG PO SCH (08:44)
[2020-04-26] MEDS: HEPARIN SODIUM,PORCINE 5,000 UNIT/ML 1 ML VIAL SQ SCH ×2 (08:44→22:21)
[2020-04-26] MEDS: ATORVASTATIN 20 MG TAB PO SCH (08:44)
[2020-04-26] MEDS: METOPROLOL SUCCINATE (ER) 25 MG TAB.ER.24H PO SCH ×2 (08:45→22:22)
[2020-04-26] MEDS: MULTIVITAMINS, THERA 1 EACH TAB PO SCH (08:52)
[2020-04-26] MEDS: PANTOPRAZOLE 40 MG/10 ML VIAL IVP SCH ×2 (08:54→22:21)
[2020-04-26] MEDS: LIDOCAINE-PRILOCAINE 2.5-2.5% CREAM 5 GM TUBE TOPICAL SCH (08:55)
[2020-04-26] MEDS: FUROSEMIDE 10 MG/ML 4 ML VIAL IV SCH (08:58)
[2020-04-26] MEDS: MEGESTROL 400 MG/10 ML CUP PO SCH (09:08)
[2020-04-26 09:56] LABS: Anion Gap 10.5 mmol/L (4.00-12.00); BUN/Creat Ratio 88.89 Ratio (12.00-20.00); Calcium 7.8 mg/dL (8.7-10.3); Carbon Dioxide 22.5 mmol/L (21.6-31.8); Non-African American GFR(CKD) 61.2 (60.0-200.0); Phosphorus 4.4 mg/dL (2.4-5.1); Potassium 3.1 mmol/L (3.5-5.5)
--- NOTE | 2020-04-26 10:27 | ECHOF ---
Referral Reason:chf MEASUREMENTS -------- HEIGHT: 162.6 cm WEIGHT: 38.6 kg BP: 130/76 RVIDd: 2.7 cm (< 3.3) IVSd: 1.0 cm (0.6 - 1.1) LVIDd: 3.6 cm (3.9 - 5.3) LVPWd: 1.0 cm (0.6 - 1.1) IVSs: 1.4 cm LVIDs: 2.3 cm LVPWs: 1.4 cm LA Diam: 1.7 cm (2.7 - 3.8) Ao Diam: 2.6 cm (2.0 - 3.7) AV Cusp: 1.7 cm (1.5 - 2.6) MV EXCURSION: 17.440 mm (> 18.000) MV EF SLOPE: 162 mm/s (70 - 150) EPSS: 0.5 cm MV E Justin: 0.74 m/s MV DecT: 124 ms MV A Justin: 0.36 m/s MV E/A Ratio: 2.08 RAP: 5.00 mmHg RVSP: 35.07 mmHg FINDINGS -------- This was a technically adequate study. The left ventricular size is normal. Left ventricular wall thickness is normal. There is moderate global hypokinesis of LV . Overall left ventricular systolic function is moderately impaired with, an EF between 35 - 40 %. The right ventricle is normal in size. The left atrial size is normal. The right atrial size is normal. Interatrial and interventricular septum intact. There is mild aortic valve sclerosis. The mitral valve leaflets are mildly thickened. Mild mitral regurgitation is present. The tricuspid valve appears structurally normal. Mild tricuspid regurgitation present. There is m ild pulmonary hypertension. The right ventricular systolic pressure, as measured by Doppler, is 35. 07mmHg. The pulmonic valve was not well visualized. There is no pulmonic regurgitation present. The aortic root size is normal. Normal inferior vena cava with normal inspiratory collapse consistent with estimated right atrial pre ssure of 5 mmHg. There is no pericardial effusion. CONCLUSIONS -------- 1. Left ventricular wall thickness is normal. 2. There is moderate global hypokinesis of LV . 3. Overall left ventricular systolic function is moderately impaired with, an EF between 35 - 40 %. 4. The left atrial size is normal. 5. There is mild aortic valve sclerosis. 6. The mitral valve leaflets are mildly thickened. 7. Mild mitral regurgitation is present. 8. Mild tricuspid regurgitation present. 9. There is mild pulmonary hypertension. 10. There is no pericardial effusion. TITLE I TEACHER: Neda Cristobal RDCS
[2020-04-26 11:53] LABS: Glucose,Whole Blood 179 mg/dL (75-99)
[2020-04-26] MEDS: FOLIC ACID 1 MG TAB PO SCH (12:03)
[2020-04-26] MEDS: THIAMINE 100 MG TAB PO SCH (12:03)
--- NOTE | 2020-04-26 13:22 | P.CRDCN ---
History of Present Illness Consult date: 04/26/20 History of present illness: CHIEF COMPLAINT: Possible CHF HISTORY OF PRESENT ILLNESS: This is a 79-year-old female with a past medical history significant for hypertension, hyperlipidemia, former nicotine dependence, and pancreatic cancer. Patient does not follow with a handkerchief maker. We have been asked to see the patient in consultation for congestive heart failure. Patient examined at the bedside. Patient denies chest pain or pressure. She denies shortness of breath. She denies any previous history of congestive heart failure. Patient states she is too weak to get out of bed and ambulate. She reports a poor appetite and poor oral intake. Patient underwent paracentesis yesterday and cytology is pending. Echocardiogram completed reveals ejection fraction 35-40%, mild mitral regurgitation, and mild tricuspid regurgitation. DIAGNOSTICS: EKG reveals sinus rhythm with left bundle branch block. No signs of acute ischemia. Chest xray COPD with diffuse bilateral pleural parenchymal changes related for CHF versus diffuse pneumonia. Laboratory data: WBC 22.1. Hemoglobin 9.9. Platelet count 145. Sodium 146. Potassium 3.1. BUN 80. Creatinine 0.90. Total protein 4.8. Albumin 2.5. Current home cardiac medications include aspirin 81 mg daily, metoprolol 25 mg twice a day, Lipitor 20 g daily, and Norvasc 2.5 mg daily REVIEW OF SYSTEMS: At the time of my exam: CONSTITUTIONAL: Denies fever or chills. Patient reports generalized fatigue and weakness. HEENT: Denies blurred vision, vision changes, or eye pain. Denies hemoptysis CARDIOVASCULAR: Denies chest pain, orthopnea, PND or palpitations RESPIRATORY: No shortness of breath. GASTROINTESTINAL: Denies abdominal pain. Denies nausea or vomiting. HEMATOLOGIC: Denies bleeding disorders. GENITOURINARY: Denies any blood in urine. SKIN: Denies pruitis. Denies rash. PHYSICAL EXAM: VITAL SIGNS: Reviewed. GENERAL: Well-developed in no acute distress-patient very frail and cachectic. HEENT: Head is normocephalic. Pupils are equal, round. Sclerae anicteric. Mucous membranes of the mouth are moist. Neck supple. No JVD or thyromegaly LUNGS: Respirations even and unlabored. Lungs essentially clear to auscultation bilaterally. HEART: Regular rate and rhythm. S1 and S2 heard. ABDOMEN: Soft. Mildly distended. Nontender. EXTREMITIES: Normal range of motion. No clubbing or cyanosis. Peripheral pulses intact. 2+ bilateral lower extremity edema NEUROLOGIC: Slightly lethargic. Oriented x 2-3. ASSESSMENT: Pancreatic cancer Ascites, status post paracentesis Nonischemic cardiomyopathy, EF 35-40% Peripheral edema, secondary to immobility and hypoalbuminemia, no evidence of acute CHF Hypoalbuminemia Hypertension Hyperlipidemia Former nicotine dependence PLAN: Patients lower extremity edema secondary to immobility and hypoalbuminemia. BNP within normal limits for patients age. She denies any shortness of breath. No evidence of acute CHF. No further intervention from a cardiac standpoint. Continue management per internal medicine and oncology. We will sign off. Please call with questions or concerns. Nurse practitioner note has been reviewed by physician. Signing provider agrees with the documented findings, assessment, and plan of care. Past Medical History Past Medical History: Hyperlipidemia, Hypertension Additional Past Medical History / Comment(s): pancreatic cancer History of Any Multi-Drug Resistant Organisms: None Reported Past Surgical History: Cholecystectomy, Hysterectomy Past Anesthesia/Blood Transfusion Reactions: No Reported Reaction Past Psychological History: No Psychological Hx Reported Smoking Status: Former smoker Past Alcohol Use History: None Reported Past Drug Use History: None Reported - Past Family History Father Family Medical History: No Reported History Son(s) Family Medical History: No Reported History Medications and Allergies Home Medications Medication Instructions Recorded Confirmed Type Aspirin EC [Ecotrin Low Dose] 81 mg PO DAILY 04/24/20 04/24/20 History Atorvastatin Calcium [Lipitor] 20 mg PO DAILY 04/24/20 04/24/20 History Lidocaine-Prilocaine Cream [Emla 1 applic TOPICAL DAILY 04/24/20 04/24/20 History Cream 2.5%/2.5%] Metoprolol Succinate (ER) [Toprol 25 mg PO BID 04/24/20 04/24/20 History Xl] amLODIPine [Norvasc] 2.5 mg PO DAILY 04/24/20 04/24/20 History Allergies Allergy/AdvReac Type Severity Reaction Status Date / Time No Known Allergies Allergy Verified 04/24/20 13:39 Physical Exam Vitals: Vital Signs Temp Pulse Resp BP BP Pulse Ox 04/26/20 08:15 16 04/26/20 07:38 97.9 F 98 18 115/73 97 04/26/20 03:30 98.3 F 110 H 19 130/76 98 04/25/20 20:00 97.6 F 115 H 18 101/72 99 04/25/20 18:05 105 H 127/86 100 04/25/20 17:50 103 H 130/85 04/25/20 17:35 107 H 114/71 04/25/20 17:20 109 H 138/83 04/25/20 17:05 97.4 F L 98 18 118/70 04/25/20 15:45 103 H 16 93/61 95 04/25/20 15:31 16 90/65 04/25/20 15:15 98 16 91/67 95 04/25/20 15:00 104 H 16 89/59 94 L 04/25/20 14:04 97.7 F 101 H 18 129/80 Intake and Output 04/25/20 04/26/20 04/26/20 22:59 06:59 14:59 Intake Total 50 Output Total 400 Balance -400 50 Intake: Oral 50 Output: Urine 400 Other: Voiding Method Indwelling Catheter Results 04/26/20 06:03 04/26/20 06:03 Cardiac Enzymes 04/25/20 Range/Units 05:13 AST 55 H (13-35) U/L CBC 04/26/20 Range/Units 06:03 WBC 22.1 H (3.8-10.6) k/uL RBC 3.00 L (3.80-5.40) m/uL Hgb 9.9 L D (11.4-16.0) gm/dL Hct 28.5 L (34.0-46.0) % Plt Count 145 L (150-450) k/uL Comprehensive Metabolic Panel 04/25/20 04/25/20 04/26/20 Range/Units 05:13 05:13 06:03 Sodium 146 H (135-145) mmol/L Potassium 3.1 L (3.5-5.5) mmol/L Chloride 113 H (96-109) mmol/L Carbon Dioxide 22.5 (21.6-31.8) mmol/L BUN 80.0 H (9.0-27.0) mg/dL Creatinine 0.9 (0.6-1.5) mg/dL Glucose 44 L* 161 H (70-110) mg/dL Calcium 7.6 L 7.8 L (8.7-10.3) mg/dL AST 55 H (13-35) U/L ALT 33 (8-44) U/L Alkaline Phosphatase 112 (41-126) U/L Total Protein 4.7 L (6.2-8.2) g/dL Albumin 3.10 L (3.80-4.90) g/dL Current Medications Generic Name Dose Route Start Last Admin Trade Name Freq PRN Reason Stop Dose Admin Alprazolam 0.25 mg 04/24/20 19:14 Alprazolam 0.25 Mg Tab PO TID PRN Anxiety Aspirin 81 mg 04/25/20 09:00 04/26/20 08:44 Aspirin 81 Mg PO 81 mg DAILY AUDRA Administration Atorvastatin Calcium 20 mg 04/25/20 09:00 04/26/20 08:44 Atorvastatin 20 Mg Tab PO 20 mg DAILY AUDRA Administration Azithromycin 500 mg 04/25/20 17:00 04/25/20 17:12 Azithromycin 500 Mg Tab PO 500 mg DAILY@1700 AUDRA Administration Folic Acid 1 mg 04/25/20 12:00 04/26/20 12:03 Folic Acid 1 Mg Tab PO 1 mg DAILY@1200 AUDRA Administration Furosemide 40 mg 04/25/20 17:15 04/26/20 08:58 Furosemide 10 Mg/Ml 4 Ml Vial IV 40 mg DAILY AUDRA Administration Heparin Sodium (Porcine) 3,000 unit 04/24/20 21:00 04/26/20 08:44 Heparin Sodium,Porcine 5,000 Unit/Ml 1 Ml Vial SQ 3,000 unit Q12HR AUDRA Administration Dextrose/Sodium Chloride 1,000 mls @ 75 mls/hr 04/25/20 12:15 04/26/20 02:30 Dextrose 5%-Ns Iv Soln IV Not Given .[id number] [facility] Cefepime HCl 2 gm/ Sodium 100 mls @ 25 mls/hr 04/26/20 00:00 04/26/20 12:09 Chloride IVPB 25 mls/hr Q12H AUDRA Administration Lidocaine/Prilocaine 1 applic 04/25/20 09:00 04/26/20 08:55 Lidocaine-Prilocaine 2.5-2.5% Cream 5 Gm Tube TOPICAL Not Given DAILY [facility] Megestrol Acetate 800 mg 04/25/20 10:30 12/03/20 09:08 Megestrol 400 Mg/10 Ml Cup PO 800 mg DAILY AUDRA Administration Metoprolol Succinate 12.5 mg 04/25/20 21:00 04/26/20 08:45 Metoprolol Succinate (Er) 25 Mg Tab.Er.24h PO 12.5 mg BID AUDRA Administration Miscellaneous Information 1 each 04/24/20 15:10 Pneumonia Protocol Utilized 1 Each Misc PO ONCE PRN Per Protocol Miscellaneous Information 1 each 04/24/20 19:14 Magnesium Replacement Protocol 1 Each Misc MISCELLANE DAILY PRN Per Protocol Protocol Miscellaneous Information 1 each 04/24/20 19:14 Phosphorus Replacement Protoco 1 Each Misc MISCELLANE DAILY PRN Per Protocol Protocol Multivitamins 1 each 04/25/20 12:00 04/26/20 08:52 Multivitamins, Thera 1 Each Tab PO 1 each DAILY@1200 AUDRA Administration Pantoprazole Sodium 40 mg 04/24/20 19:13 04/26/20 08:54 Pantoprazole 40 Mg/10 Ml Vial IVP 40 mg BID AUDRA Administration Thiamine HCl 100 mg 04/25/20 12:00 04/26/20 12:03 Thiamine 100 Mg Tab PO 100 mg DAILY@1200 AUDRA Administration Intake and Output 04/25/20 04/26/20 04/26/20 22:59 06:59 14:59 Intake Total 50 Output Total 400 Balance -400 50 Intake: Oral 50 Output: Urine 400 Other: Voiding Method Indwelling Catheter 04/26/20 06:03 04/26/20 06:03
--- NOTE | 2020-04-26 14:43 | P.PN ---
Subjective Progress Note Date: 04/26/20 This is a 79-year-old female who was recently admitted with significant wasting, weakness, dehydration, and poor oral intake and is being closely monitored. Patient currently receiving treatments for pancreatic cancer and oncology is following closely. Patient underwent abdominal paracentesis and fluid analysis is currently pending. Patient is maintained on antibiotics in the form of Zithromax along with IV cefepime and will continue at this time. Blood cultures preliminary showing gram-negative bacilli and awaiting culture finalization and bacteremia clearance. Infectious disease is following. Patient continues to have extremely poor oral intake and needs encouragement. There is a possibility of discussion for enteric nutrition. Dietitian's are following. Patient is maintained on 40 mg of IV Lasix daily and will continue at this time. Patient continues to have bilateral lower extremity edema with inability to get up out of bed. PT/OT to evaluate the patient and awaiting recommendations. Patient continues to be lethargic and somewhat confused but is arousable and responding to simple commands. Patient is currently maintained on 4 L of oxygen via nasal cannula. Potassium found to be 3.1 and currently being replaced, current sodium is 146 and fluids have been discontinued. Review of systems: Constitutional: Reports increased fatigue Cardiovascular: No reports of chest pain or palpitations Respiratory: Reports mild shortness of breath GI: No reports of nausea, vomiting, or diarrhea, reports decreased appetite : No reports of dysuria or retention Neurovascular: Reports weakness with no reports of numbness All medications have been reviewed Active Medications Alprazolam (Alprazolam 0.25 Mg Tab) 0.25 mg PO TID PRN PRN Reason: Anxiety Aspirin (Aspirin 81 Mg) 81 mg PO DAILY [facility] Last Admin: 04/26/20 08:44 Dose: 81 mg Documented by: Atorvastatin Calcium (Atorvastatin 20 Mg Tab) 20 mg PO DAILY [facility] Last Admin: 04/26/20 08:44 Dose: 20 mg Documented by: Azithromycin (Azithromycin 500 Mg Tab) 500 mg PO DAILY@1700 [facility] Last Admin: 04/25/20 17:12 Dose: 500 mg Documented by: Folic Acid (Folic Acid 1 Mg Tab) 1 mg PO DAILY@1200 [facility] Last Admin: 04/26/20 12:03 Dose: 1 mg Documented by: Furosemide (Furosemide 10 Mg/Ml 4 Ml Vial) 40 mg IV DAILY [facility] Last Admin: 04/26/20 08:58 Dose: 40 mg Documented by: Heparin Sodium (Porcine) (Heparin Sodium,Porcine 5,000 Unit/Ml 1 Ml Vial) 3,000 unit SQ Q12HR [facility] Last Admin: 04/26/20 08:44 Dose: 3,000 unit Documented by: Dextrose/Sodium Chloride (Dextrose 5%-Ns Iv Soln) 1,000 mls @ 75 mls/hr IV .[id number] [facility] Last Admin: 04/26/20 02:30 Dose: Not Given Documented by: Cefepime HCl 2 gm/ Sodium (Chloride) 100 mls @ 25 mls/hr IVPB Q12H [facility] Last Admin: 04/26/20 12:09 Dose: 25 mls/hr Documented by: Lidocaine/Prilocaine (Lidocaine-Prilocaine 2.5-2.5% Cream 5 Gm Tube) 1 applic TOPICAL DAILY [facility] Last Admin: 04/26/20 08:55 Dose: Not Given Documented by: Megestrol Acetate (Megestrol 400 Mg/10 Ml Cup) 800 mg PO DAILY [facility] Last Admin: 04/26/20 09:08 Dose: 800 mg Documented by: Metoprolol Succinate (Metoprolol Succinate (Er) 25 Mg Tab.Er.24h) 12.5 mg PO B ID [facility] Last Admin: 04/26/20 08:45 Dose: 12.5 mg Documented by: Miscellaneous Information (Pneumonia Protocol Utilized 1 Each Misc) 1 each PO ONCE PRN PRN Reason: Per Protocol Miscellaneous Information (Magnesium Replacement Protocol 1 Each Misc) 1 each MISCELLANE DAILY PRN; Protocol PRN Reason: Per Protocol Miscellaneous Information (Phosphorus Replacement Protoco 1 Each Misc) 1 each MISCELLANE DAILY PRN; Protocol PRN Reason: Per Protocol Multivitamins (Multivitamins, Thera 1 Each Tab) 1 each PO DAILY@1200 [facility] Last Admin: 04/26/20 08:52 Dose: 1 each Documented by: Pantoprazole Sodium (Pantoprazole 40 Mg/10 Ml Vial) 40 mg IVP BID [facility] Last Admin: 04/26/20 08:54 Dose: 40 mg Documented by: Thiamine HCl (Thiamine 100 Mg Tab) 100 mg PO DAILY@1200 [facility] Last Admin: 04/26/20 12:03 Dose: 100 mg Documented by: Objective - Vital Signs Vital signs: Vital Signs Temp 97.9 F 04/26/20 07:38 Pulse 98 04/26/20 07:38 Resp 16 04/26/20 08:15 BP 115/73 04/26/20 07:38 Pulse Ox 97 04/26/20 07:38 Intake & Output 04/25/20 04/26/20 04/26/20 18:59 06:59 18:59 Intake Total 50 Output Total 400 Balance -400 50 Weight 38.555 kg Intake: Oral 50 Output: Urine 400 Other: Voiding Method Indwelling Catheter Indwelling Catheter - Exam Gen: This is a 79-year-old female lying in bed, asleep although arousable, alert and oriented 2. Thin built, cachectic. Temp is 97.9F, pulse is 98, respirations are 18, blood pressure is 115/73, oxygen saturation is 97% on 4 L via nasal cannula. HEENT: Head is atraumatic, normocephalic. Pupils equal, round. Sclerae is anicteric. Oral mucosa is dry NECK: Supple. No JVD. No lymphadenopathy. No thyromegaly. LUNGS: Diminished breath sounds bilaterally with some scattered rhonchi and crackles noted. No intercostal retractions. HEART: S1, S2 are muffled ABDOMEN: Soft. Thin, cachectic, Bowel sounds are present. No masses. No tenderness. EXTREMITIES: No calf tenderness. Bilateral lower extremity edema noted 1-2+ pitting NEUROLOGICAL: Patient is asleep although arousable , alert and oriented x2. Cranial nerves 2 through 12 are grossly intact. Diffusely weak - Labs CBC & Chem 7: 04/26/20 06:03 04/26/20 06:03 Labs: Abnormal Lab Results - Last 24 Hours (Table) 04/25/20 04/25/20 04/25/20 Range/Units 05:13 05:13 12:35 WBC (3.8-10.6) k/uL RBC (3.80-5.40) m/uL Hgb (11.4-16.0) gm/dL Hct (34.0-46.0) % Plt Count (150-450) k/uL Neutrophils # (1.3-7.7) k/uL Lymphocytes # (1.0-4.8) k/uL Sodium (135-145) mmol/L Potassium (3.5-5.5) mmol/L Chloride (96-109) mmol/L BUN (9.0-27.0) mg/dL BUN/Creatinine Ratio (12.00-20.00) Ratio Glucose 44 L* (70-110) mg/dL POC Glucose (mg/dL) 228 H (75-99) mg/dL Calcium 7.6 L (8.7-10.3) mg/dL AST 55 H (13-35) U/L Total Protein 4.7 L (6.2-8.2) g/dL Albumin 3.10 L (3.80-4.90) g/dL Cortisol (3.10-22.40) ug/dL 04/25/20 04/25/20 04/26/20 Range/Units 17:16 20:06 06:03 WBC 22.1 H (3.8-10.6) k/uL RBC 3.00 L (3.80-5.40) m/uL Hgb 9.9 L D (11.4-16.0) gm/dL Hct 28.5 L (34.0-46.0) % Plt Count 145 L (150-450) k/uL Neutrophils # 20.9 H (1.3-7.7) k/uL Lymphocytes # 0.5 L (1.0-4.8) k/uL Sodium (135-145) mmol/L Potassium (3.5-5.5) mmol/L Chloride (96-109) mmol/L BUN (9.0-27.0) mg/dL BUN/Creatinine Ratio (12.00-20.00) Ratio Glucose (70-110) mg/dL POC Glucose (mg/dL) 149 H 235 H (75-99) mg/dL Calcium (8.7-10.3) mg/dL AST (13-35) U/L Total Protein (6.2-8.2) g/dL Albumin (3.80-4.90) g/dL Cortisol (3.10-22.40) ug/dL 04/26/20 04/26/20 04/26/20 Range/Units 06:03 07:00 11:49 WBC (3.8-10.6) k/uL RBC (3.80-5.40) m/uL Hgb (11.4-16.0) gm/dL Hct (34.0-46.0) % Plt Count (150-450) k/uL Neutrophils # (1.3-7.7) k/uL Lymphocytes # (1.0-4.8) k/uL Sodium 146 H (135-145) mmol/L Potassium 3.1 L (3.5-5.5) mmol/L Chloride 113 H (96-109) mmol/L BUN 80.0 H (9.0-27.0) mg/dL BUN/Creatinine Ratio 88.89 H (12.00-20.00) Ratio Glucose 161 H (70-110) mg/dL POC Glucose (mg/dL) 201 H 179 H (75-99) mg/dL Calcium 7.8 L (8.7-10.3) mg/dL AST (13-35) U/L Total Protein (6.2-8.2) g/dL Albumin (3.80-4.90) g/dL Cortisol 60.5 H (3.10-22.40) ug/dL Microbiology - Last 24 Hours (Table) 04/25/20 15:30 Gram Stain - Preliminary Ascites Fluid Body Fluid Culture - Preliminary 04/25/20 15:30 Anaerobic Culture - Preliminary Ascites Fluid 04/24/20 15:45 Blood Culture Gram Stain - Preliminary Blood Blood Culture - Preliminary Gram Neg Bacilli 04/24/20 15:45 Blood Culture - Final Blood Assessment and Plan Assessment: Significant wasting and weakness and dehydration, secondary to pancreatic cancer Pancreatic cancer, on chemotherapy Bilateral pleural effusion, possible pneumonia Bacteremia with preliminary blood culture showing gram-negative bacilli Ruled out congestive heart failure, non-ischemic cardiomyopathy with an ejection fraction of 35-40% Increased white blood count, possible sepsis Thrombocytopenia Hypokalemia Increased BUN Hypoalbuminemia with severe protein calorie malnutrition with a body mass index of 14.6 Increased AST Hypertension Gait dysfunction Hyperlipidemia Cholecystectomy History of nicotine dependence Change in mental status, acute metabolic encephalopathy, multifactorial Full code Recommendations and discussion: Recommend to continue current medications, management, and symptomatic treatment. Continue to encourage oral intake as patient continues to have no appetite and poor oral intake. Possibility of enteric nutrition being discusse d. Multiple medical consultations including oncology following closely. Patient underwent an 2-D echo showing nonischemic cardiomyopathy with an ejection fraction of 35-40%. Cardiology evaluated the patient. BNP was within normal limits. Patient is maintained on IV Lasix IV push and will continue at this time. continues to have bilateral lower extremity edema most likely due to hypoalbuminemia and decreased activity and immobility. Will continue to monitor vital signs and labs closely. Due to multiple complex medical issues, prognosis is guarded. Need to discuss treatment plan with oncology team. Further recommendations to follow.
[2020-04-26 16:35] LABS: Glucose,Whole Blood 180 mg/dL (75-99)
[2020-04-26] MEDS: AZITHROMYCIN 500 MG TAB PO SCH (18:29)
[2020-04-26 20:23] LABS: Glucose,Whole Blood 153 mg/dL (75-99)
--- NOTE | 2020-04-26 21:53 | P.CONS ---
History of Present Illness - Reason for Consult Consult date: 04/26/20 Bacteremia Requesting physician: Modesto Sparrow - Chief Complaint weakness and low appetite x few days - History of Present Illness Patient is a 79-year female with a past medical he significant for pancreatic cancer on chemotherapy presenting to the ER at [facility] on April 24, 2020 for evaluation of weakness nausea and occasional diarrhea and main symptom has been explained weakness not eating or drinking much and no fever no chills with the symptom the patient was evaluated by the ER physician on arrival to the ER patient was afebrile and no fever has been recorded since admission to the hospital the patient did have a white count 17.2 which is up to 22.1 today patient kidney function is normal liver enzymes mildly elevated rojas PCR was negative patient did have paracentesis done yesterday and did not show significant elevated white count patient urine was negative as well patient did have a chest x-ray bilateral pleural effusion and probable associated atelectasis patient did have CT of chest abdominal pelvis which shows moderate sized bilateral pleural effusion most abdominal ascites pancreatic head mass unchanged patient did have blood cultures drawn which came positive with a gram-negative bacilli that prompted this infectious disease consultation patient is currently being treated with cefepime. Review of Systems Positive point has been mentioned in HPI rest of the systems are negative Past Medical History Past Medical History: Hyperlipidemia, Hypertension Additional Past Medical History / Comment(s): pancreatic cancer History of Any Multi-Drug Resistant Organisms: None Reported Past Surgical History: Cholecystectomy, Hysterectomy Past Anesthesia/Blood Transfusion Reactions: No Reported Reaction Past Psychological History: No Psychological Hx Reported Smoking Status: Former smoker Past Alcohol Use History: None Reported Past Drug Use History: None Reported - Past Family History Father Family Medical History: No Reported History Son(s) Family Medical History: No Reported History Medications and Allergies Home Medications Medication Instructions Recorded Confirmed Type Aspirin EC [Ecotrin Low Dose] 81 mg PO DAILY 04/24/20 04/24/20 History Atorvastatin Calcium [Lipitor] 20 mg PO DAILY 04/24/20 04/24/20 History Lidocaine-Prilocaine Cream [Emla 1 applic TOPICAL DAILY 04/24/20 04/24/20 Hi story Cream 2.5%/2.5%] Metoprolol Succinate (ER) [Toprol 25 mg PO BID 04/24/20 04/24/20 History Xl] amLODIPine [Norvasc] 2.5 mg PO DAILY 04/24/20 04/24/20 History Allergies Allergy/AdvReac Type Severity Reaction Status Date / Time No Known Allergies Allergy Verified 04/24/20 13:39 Physical Exam Vitals: Vital Signs Temp Pulse Resp BP BP Pulse Ox 04/26/20 08:15 16 04/26/20 07:38 97.9 F 98 18 115/73 97 04/26/20 03:30 98.3 F 110 H 19 130/76 98 04/25/20 20:00 97.6 F 115 H 18 101/72 99 04/25/20 18:05 105 H 127/86 100 04/25/20 17:50 103 H 130/85 04/25/20 17:35 107 H 114/71 04/25/20 17:20 109 H 138/83 04/25/20 17:05 97.4 F L 98 18 118/70 04/25/20 15:45 103 H 16 93/61 95 04/25/20 15:31 16 90/65 04/25/20 15:15 98 16 91/67 95 04/25/20 15:00 104 H 16 89/59 94 L 04/25/20 14:04 97.7 F 101 H 18 129/80 Intake and Output 04/25/20 04/26/20 04/26/20 22:59 06:59 14:59 Intake Total 50 Output Total 400 Balance -400 50 Intake: Oral 50 Output: Urine 400 Other: Voiding Method Indwelling Catheter GENERAL DESCRIPTION: Elderly female lying in bed, no distress. No tachypnea or accessory muscle of respiration use. HEENT: Shows Pallor , no scleral icterus. Oral mucous membrane is dry. NECK: Trachea central, no thyromegaly. LUNGS: Unlabored breathing. Decreased breath on the base. No wheeze or crackle. HEART: S1, S2, regular rate and rhythm. ABDOMEN: Soft, no tenderness , guarding or rigidity EXTREMITIES: No edema of feet. SKIN: No rash, no masses palpable. NEUROLOGICAL: The patient is awake, alert, oriented x2, mood and affect normal. Results CBC & Chem 7: 04/26/20 06:03 04/26/20 06:03 Labs: Abnormal Lab Results - Last 24 Hours (Table) 04/25/20 04/25/20 04/25/20 Range/Units 05:13 05:13 11:11 WBC (3.8-10.6) k/uL RBC (3.80-5.40) m/uL Hgb (11.4-16.0) gm/dL Hct (34.0-46.0) % Plt Count (150-450) k/uL Neutrophils # (1.3-7.7) k/uL Lymphocytes # (1.0-4.8) k/uL Sodium (135-145) mmol/L Potassium (3.5-5.5) mmol/L Chloride (96-109) mmol/L Anion Gap 12.80 H (4.00-12.00) mmol/L BUN 71.0 H (9.0-27.0) mg/dL BUN/Creatinine Ratio 118.33 H (12.00-20.00) Ratio Glucose 44 L* (70-110) mg/dL POC Glucose (mg/dL) 66 L (75-99) mg/dL Calcium 8.2 L 7.6 L (8.7-10.3) mg/dL AST 55 H (13-35) U/L Total Protein 4.7 L (6.2-8.2) g/dL Albumin 3.10 L (3.80-4.90) g/dL Cortisol (3.10-22.40) ug/dL 04/25/20 04/25/20 04/25/20 Range/Units 11:35 11:53 12:06 WBC (3.8-10.6) k/uL RBC (3.80-5.40) m/uL Hgb (11.4-16.0) gm/dL Hct (34.0-46.0) % Plt Count (150-450) k/uL Neutrophils # (1.3-7.7) k/uL Lymphocytes # (1.0-4.8) k/uL Sodium (135-145) mmol/L Potassium (3.5-5.5) mmol/L Chloride (96-109) mmol/L Anion Gap (4.00-12.00) mmol/L BUN (9.0-27.0) mg/dL BUN/Creatinine Ratio (12.00-20.00) Ratio Glucose (70-110) mg/dL POC Glucose (mg/dL) 61 L 61 L 49 L (75-99) mg/dL Calcium (8.7-10.3) mg/dL AST (13-35) U/L Total Protein (6.2-8.2) g/dL Albumin (3.80-4.90) g/dL Cortisol (3.10-22.40) ug/dL 04/25/20 04/25/20 04/25/20 Range/Units 12:18 12:35 17:16 WBC (3.8-10.6) k/uL RBC (3.80-5.40) m/uL Hgb (11.4-16.0) gm/dL Hct (34.0-46.0) % Plt Count (150-450) k/uL Neutrophils # (1.3-7.7) k/uL Lymphocytes # (1.0-4.8) k/uL Sodium (135-145) mmol/L Potassium (3.5-5.5) mmol/L Chloride (96-109) mmol/L Anion Gap (4.00-12.00) mmol/L BUN (9.0-27.0) mg/dL BUN/Creatinine Ratio (12.00-20.00) Ratio Glucose (70-110) mg/dL POC Glucose (mg/dL) 58 L 228 H 149 H (75-99) mg/dL Calcium (8.7-10.3) mg/dL AST (13-35) U/L Total Protein (6.2-8.2) g/dL Albumin (3.80-4.90) g/dL Cortisol (3.10-22.40) ug/dL 04/25/20 04/26/20 04/26/20 Range/Units 20:06 06:03 06:03 WBC 22.1 H (3.8-10.6) k/uL RBC 3.00 L (3.80-5.40) m/uL Hgb 9.9 L D (11.4-16.0) gm/dL Hct 28.5 L (34.0-46.0) % Plt Count 145 L (150-450) k/uL Neutrophils # 20.9 H (1.3-7.7) k/uL Lymphocytes # 0.5 L (1.0-4.8) k/uL Sodium 146 H (135-145) mmol/L Potassium 3.1 L (3.5-5.5) mmol/L Chloride 113 H (96-109) mmol/L Anion Gap (4.00-12.00) mmol/L BUN 80.0 H (9.0-27.0) mg/dL BUN/Creatinine Ratio 88.89 H (12.00-20.00) Ratio Glucose 161 H (70-110) mg/dL POC Glucose (mg/dL) 235 H (75-99) mg/dL Calcium 7.8 L (8.7-10.3) mg/dL AST (13-35) U/L Total Protein (6.2-8.2) g/dL Albumin (3.80-4.90) g/dL Cortisol 60.5 H (3.10-22.40) ug/dL 04/26/20 Range/Units 07:00 WBC (3.8-10.6) k/uL RBC (3.80-5.40) m/uL Hgb (11.4-16.0) gm/dL Hct (34.0-46.0) % Plt Count (150-450) k/uL Neutrophils # (1.3-7.7) k/uL Lymphocytes # (1.0-4.8) k/uL Sodium (135-145) mmol/L Potassium (3.5-5.5) mmol/L Chloride (96-109) mmol/L Anion Gap (4.00-12.00) mmol/L BUN (9.0-27.0) mg/dL BUN/Creatinine Ratio (12.00-20.00) Ratio Glucose (70-110) mg/dL POC Glucose (mg/dL) 201 H (75-99) mg/dL Calcium (8.7-10.3) mg/dL AST (13-35) U/L Total Protein (6.2-8.2) g/dL Albumin (3.80-4.90) g/dL Cortisol (3.10-22.40) ug/dL Microbiology - Last 24 Hours (Table) 04/25/20 15:30 Gram Stain - Preliminary Ascites Fluid Body Fluid Culture - Preliminary 04/25/20 15:30 Anaerobic Culture - Preliminary Ascites Fluid 04/24/20 15:45 Blood Culture Gram Stain - Preliminary Blood Blood Culture - Preliminary Gram Neg Bacilli 04/24/20 15:45 Blood Culture - Final Blood Assessment and Plan Assessment: patient with gram-negative bacteremia in this patient with history of pancreatic head cancer status post chemotherapy presented to hospital denies weakness no energy patient did have a CT abdominal pelvis as well as chest with evidence of pleural effusion and ascites ascitic fluid did not show any significant elevated white count to be suspicious for secondary peritonitis but likely source of this bacteremia is abdominal (1) Gram-negative bacteremia Current Visit: Yes Status: Acute Code(s): R78.81 - BACTEREMIA SNOMED Code(s): 585342833730 Plan: 1-blood cultures will be repeated document clearance of bacteremia 2-discontinue cefepime and start the patient on Invanz 1 g daily We will follow on clinical condition and cultures to further adjust medication if needed Thank you for this consultation we will follow the patient along with you Time with Patient: Greater than 30
[2020-04-26] MEDS ORDERED: ERTAPENEM 1 GM in SODIUM CHLORIDE 0.9% 50 ML IVPB SCH (22:00)
--- NOTE | 2020-04-26 22:01 | P.PN ---
Subjective Progress Note Date: 04/26/20 Objective - Vital Signs Vital signs: Vital Signs Temp 98.5 F 04/26/20 19:21 Pulse 92 04/26/20 19:21 Resp 14 04/26/20 19:21 BP 80/57 04/26/20 19:21 Pulse Ox 99 04/26/20 19:21 Intake & Output 04/26/20 04/26/20 04/27/20 06:59 18:59 06:59 Intake Total 50 450 Output Total 800 Balance 50 -350 Intake: Intake, IV Titration 450 Amount Sodium Chloride 0.9% 1, 450 000 ml @ 75 mls/hr IV . [id number] [facility] Rx#:[id number] Oral 50 Output: Urine 800 Other: Voiding Method Indwelling Catheter - Exam - Constitutional General appearance: cooperative - EENT Eyes: EOMI, PERRLA ENT: hard of hearing, NA/AT - Respiratory Respiratory: bilateral: diminished - Cardiovascular Rhythm: regularly irregular leg Peripheral Edema: bilateral: 1+ - Gastrointestinal General gastrointestinal: distended, soft, tenderness - Integumentary Integumentary: pale - Neurologic non focal - Musculoskeletal Musculoskeletal: generalized weakness - Labs CBC & Chem 7: 04/26/20 06:03 04/26/20 06:03 Labs: Abnormal Lab Results - Last 24 Hours (Table) 04/25/20 04/26/20 04/26/20 Range/Units 05:13 06:03 06:03 WBC 22.1 H (3.8-10.6) k/uL RBC 3.00 L (3.80-5.40) m/uL Hgb 9.9 L D (11.4-16.0) gm/dL Hct 28.5 L (34.0-46.0) % Plt Count 145 L (150-450) k/uL Neutrophils # 20.9 H (1.3-7.7) k/uL Lymphocytes # 0.5 L (1.0-4.8) k/uL Sodium 146 H (135-145) mmol/L Potassium 3.1 L (3.5-5.5) mmol/L Chloride 113 H (96-109) mmol/L BUN 80.0 H (9.0-27.0) mg/dL BUN/Creatinine Ratio 88.89 H (12.00-20.00) Ratio Glucose 44 L* 161 H (70-110) mg/dL POC Glucose (mg/dL) (75-99) mg/dL Calcium 7.8 L (8.7-10.3) mg/dL Cortisol 60.5 H (3.10-22.40) ug/dL 04/26/20 04/26/20 04/26/20 Range/Units 07:00 11:49 16:34 WBC (3.8-10.6) k/uL RBC (3.80-5.40) m/uL Hgb (11.4-16.0) gm/dL Hct (34.0-46.0) % Plt Count (150-450) k/uL Neutrophils # (1.3-7.7) k/uL Lymphocytes # (1.0-4.8) k/uL Sodium (135-145) mmol/L Potassium (3.5-5.5) mmol/L Chloride (96-109) mmol/L BUN (9.0-27.0) mg/dL BUN/Creatinine Ratio (-) Ratio Glucose (70-110) mg/dL POC Glucose (mg/dL) 201 H 179 H 180 H (75-99) mg/dL Calcium (8.7-10.3) mg/dL Cortisol (3.10-22.40) ug/dL 04/26/20 Range/Units 20:22 WBC (3.8-10.6) k/uL RBC (3.80-5.40) m/uL Hgb (11.4-16.0) gm/dL Hct (34.0-46.0) % Plt Count (150-450) k/uL Neutrophils # (1.3-7.7) k/uL Lymphocytes # (1.0-4.8) k/uL Sodium (135-145) mmol/L Potassium (3.5-5.5) mmol/L Chloride (96-109) mmol/L BUN (9.0-27.0) mg/dL BUN/Creatinine Ratio (.-00) Ratio Glucose (70-110) mg/dL POC Glucose (mg/dL) 153 H (75-99) mg/dL Calcium (8.7-10.3) mg/dL Cortisol (3.10-22.40) ug/dL Microbiology - Last 24 Hours (Table) 04/24/20 15:45 Blood Culture Gram Stain - Final Blood Blood Culture - Final Escherichia coli 04/25/20 15:30 Gram Stain - Preliminary Ascites Fluid Body Fluid Culture - Preliminary 04/25/20 12:25 Blood Culture - Preliminary Blood No Growth after 24 hours 04/25/20 15:30 Anaerobic Culture - Preliminary Ascites Fluid Assessment and Plan (1) Pancreatic cancer Narrative/Plan: Status POst Cycle one of MFOLFIRINOX - Details of diagnosis and circumstances in HPI - Currently on hold until control of current symptoms Current Visit: Yes Status: Acute Code(s): C25.9 - MALIGNANT NEOPLASM OF PANCREAS, UNSPECIFIED SNOMED Code(s): 649435326 (2) Abdominal ascites Narrative/Plan: - Status Post - Paracentesis today with Fluid for cytology, culture, and albumin - Await path - If not improved eating will begin TPN in am Current Visit: Yes Status: Acute Code(s): R18.8 - OTHER ASCITES SNOMED Code(s): 644888470 Plan: Continue to monitor PO intake and comfort CBC and CMP in am Physician Attest: I have completed the full history and physical and agree with above dictation. Dictated as a scribe
[2020-04-27] MEDS: DEXTROSE 5%-0.9% NACL 1,000 ML IV SCH ×2 (05:23→12:00)
[2020-04-27 06:59] LABS: Glucose,Whole Blood 149 mg/dL (75-99)
[2020-04-27] MEDS: PANTOPRAZOLE 40 MG/10 ML VIAL IVP SCH ×2 (08:58→22:44)
[2020-04-27] MEDS: ATORVASTATIN 20 MG TAB PO SCH (08:58)
[2020-04-27] MEDS: THIAMINE 100 MG TAB PO SCH (08:58)
[2020-04-27] MEDS: ASPIRIN 81 MG PO SCH (08:58)
[2020-04-27] MEDS: FUROSEMIDE 10 MG/ML 4 ML VIAL IV SCH (08:58)
[2020-04-27] MEDS: FOLIC ACID 1 MG TAB PO SCH (08:58)
[2020-04-27] MEDS: HEPARIN SODIUM,PORCINE 5,000 UNIT/ML 1 ML VIAL SQ SCH ×2 (08:58→22:44)
[2020-04-27] MEDS: METOPROLOL SUCCINATE (ER) 25 MG TAB.ER.24H PO SCH ×2 (08:59→22:43)
[2020-04-27] MEDS: MULTIVITAMINS, THERA 1 EACH TAB PO SCH (08:59)
[2020-04-27] MEDS: LIDOCAINE-PRILOCAINE 2.5-2.5% CREAM 5 GM TUBE TOPICAL SCH (09:00)
[2020-04-27] MEDS: MEGESTROL 400 MG/10 ML CUP PO SCH (09:00)
[2020-04-27 10:48] LABS: Basophils # (A) 0.1 k/uL (0-0.2); Basophils % (A) 0 %; Eosinophils % (A) 0 %; HCT 30.5 % (34.0-46.0); HGB 10.9 gm/dL (11.4-16.0); Lymphocytes # (A) 0.6 k/uL (1.0-4.8); Lymphocytes % (A) 2 %; MCH 33.8 pg (25.0-35.0); MCHC 35.8 g/dL (31.0-37.0); MCV 94.4 fL (80.0-100.0); Mean Platelet Volume 8.9; Monocytes # (A) 0.4 k/uL (0-1.0); Monocytes % (A) 2 %; Neutrophils # (A) 22.5 k/uL (1.3-7.7); Neutrophils % (A) 96 %; Platelet Count 105 k/uL (150-450); RBC 3.23 m/uL (3.80-5.40); RDW 14.9 % (11.5-15.5); WBC 23.5 k/uL (3.8-10.6)
[2020-04-27 10:49] LABS: African American GFR (CKD) 50 (>60 ml/min/1.73 sqM); Anion Gap 6 mmol/L; Blood Urea Nitrogen 70 mg/dL (7-17); Calcium 7.8 mg/dL (8.4-10.2); Carbon Dioxide 27 mmol/L (22-30); Chloride 115 mmol/L (98-107); Glucose 128 mg/dL (74-99); Non-African American GFR(CKD) 43 (>60 ml/min/1.73 sqM); Sodium 148 mmol/L (137-145)
[2020-04-27 11:09] LABS: Potassium 2.4 mmol/L (3.5-5.1)
[2020-04-27] MEDS ORDERED: Potassium Replacement Protocol 1 EACH MISC MISCELLANE PRN (11:15)
[2020-04-27 11:49] LABS: Glucose,Whole Blood 214 mg/dL (75-99)
[2020-04-27] MEDS: POTASSIUM CHLORIDE ER 20 MEQ TAB.ER PO SCH ×3 (11:55→15:36)
--- NOTE | 2020-04-27 14:58 | P.PN ---
Subjective Progress Note Date: 04/27/20 Principal diagnosis: Declining performance, symptomatic ascites Hypokalemia - Potassium 2.4, will recheck after supps and check mag Will monitor po intake tonight. Objective - Vital Signs Vital signs: Vital Signs Temp 97.5 F L 04/27/20 14:00 Pulse 91 04/27/20 14:00 Resp 19 04/27/20 14:00 BP 98/58 04/27/20 14:00 Pulse Ox 96 04/27/20 14:00 Intake & Output 04/26/20 04/27/20 04/27/20 18:59 06:59 18:59 Intake Total 450 Output Total 800 600 Balance -350 -600 Intake: Intake, IV Titration 450 Amount Sodium Chloride 0.9% 1, 450 000 ml @ 75 mls/hr IV . [id number] [facility] Rx#:[id number] Output: Urine 800 600 Other: Voiding Method Indwelling Catheter Indwelling Catheter Indwelling Catheter - Exam - Constitutional General appearance: cooperative - EENT Eyes: EOMI, PERRLA ENT: hard of hearing, NA/AT - Respiratory Respiratory: bilateral: diminished - Cardiovascular Rhythm: regularly irregular leg Peripheral Edema: bilateral: 1+ - Gastrointestinal General gastrointestinal: distended, soft, tenderness - Integumentary Integumentary: pale - Neurologic non focal - Musculoskeletal Musculoskeletal: generalized weakness - Labs CBC & Chem 7: 04/27/20 10:05 04/27/20 15:18 Labs: Abnormal Lab Results - Last 24 Hours (Table) 04/26/20 04/26/20 04/27/20 Range/Units 16:34 20:22 06:57 WBC (3.8-10.6) k/uL RBC (3.80-5.40) m/uL Hgb (11.4-16.0) gm/dL Hct (34.0-46.0) % Plt Count (150-450) k/uL Neutrophils # (1.3-7.7) k/uL Lymphocytes # (1.0-4.8) k/uL Sodium (137-145) mmol/L Potassium (3.5-5.1) mmol/L Chloride (98-107) mmol/L BUN (7-17) mg/dL Creatinine (0.52-1.04) mg/dL Glucose (74-99) mg/dL POC Glucose (mg/dL) 180 H 153 H 149 H (75-99) mg/dL Calcium (8.4-10.2) mg/dL 04/27/20 04/27/20 04/27/20 Range/Units 10:05 10:05 11:48 WBC 23.5 H (3.8-10.6) k/uL RBC 3.23 L (3.80-5.40) m/uL Hgb 10.9 L (11.4-16.0) gm/dL Hct 30.5 L (34.0-46.0) % Plt Count 105 L (150-450) k/uL Neutrophils # 22.5 H (1.3-7.7) k/uL Lymphocytes # 0.6 L (1.0-4.8) k/uL Sodium 148 H (137-145) mmol/L Potassium 2.4 L* (3.5-5.1) mmol/L Chloride 115 H (98-107) mmol/L BUN 70 H (7-17) mg/dL Creatinine 1.21 H (0.52-1.04) mg/dL Glucose 128 H (74-99) mg/dL POC Glucose (mg/dL) 214 H (75-99) mg/dL Calcium 7.8 L (8.4-10.2) mg/dL Microbiology - Last 24 Hours (Table) 04/24/20 15:45 Blood Culture Gram Stain - Final Blood Blood Culture - Final Escherichia coli 04/25/20 15:30 Gram Stain - Preliminary Ascites Fluid Body Fluid Culture - Preliminary 04/25/20 12:25 Blood Culture - Preliminary Blood No Growth after 24 hours Assessment and Plan (1) Pancreatic cancer Narrative/Plan: Status POst Cycle one of MFOLFIRINOX - Details of diagnosis and circumstances in [facility] - Currently on hold until control of current symptoms - Limited cancer burden, therefore feel continued aggressive care of symptoms is important at this time. Current Visit: Yes Status: Acute Code(s): C25.9 - MALIGNANT NEOPLASM OF PANCREAS, UNSPECIFIED SNOMED Code(s): 783374377 (2) Abdominal ascites Narrative/Plan: - Status Post - Paracentesis today with Fluid for cytology, culture, and albumin - Await path - Patient is not vomiting and no diarrhea, she has functioning gut therefore tpn will not be appropriate. Her diet has been increased to pureed today and discussed with RN to keep strict food diary and will communicate after next meal Current Visit: Yes Status: Acute Code(s): R18.8 - OTHER ASCITES SNOMED Code(s): 743966520 Plan: [place] for increased nutrition. If unable to tolerate plan for TPN - Re-consult to dieticien Physician attest: I have completed full history and physical and agree with above dictation, dictated as a scribe
[2020-04-27] MEDS: AZITHROMYCIN 500 MG TAB PO SCH (15:38)
--- NOTE | 2020-04-27 15:38 | P.PN ---
Subjective Progress Note Date: 04/27/20 This is a 79-year-old female who was recently admitted with significant wasting, weakness, dehydration, and poor oral intake and is being closely monitored. Patient currently receiving treatments for pancreatic cancer and oncology is following closely. Patient underwent abdominal paracentesis and fluid analysis is currently pending. Patient is maintained on antibiotics in the form of Zithromax along with IV cefepime and will continue at this time. Blood cultures preliminary showing gram-negative bacilli and awaiting culture finalization and bacteremia clearance. Infectious disease is following. Patient continues to have extremely poor oral intake and needs encouragement. There is a possibility of discussion for enteric nutrition. Dietitian's are following. Patient is maintained on 40 mg of IV Lasix daily and will continue at this time. Patient continues to have bilateral lower extremity edema with inability to get up out of bed. PT/OT to evaluate the patient and awaiting recommendations. Patient continues to be lethargic and somewhat confused but is arousable and responding to simple commands. Patient is currently maintained on 4 L of oxygen via nasal cannula. Potassium found to be 3.1 and currently being replaced, current sodium is 146 and fluids have been discontinued. 04/27/2020 Patient is seen and evaluated in follow-up and continues to be closely monitored. Potassium was found to be critically low at 2.4 and is currently being replaced. Creatinine is 1.21 and sodium is 148. White blood count is also increased at 23.5. Multiple medical consultations including oncology following as patient is currently active and receiving treatments. Patient's oral intake continues to be poor and is on pured diet. Discussed with nursing staff to encourage oral intake and also discussed with the patient about the importance of increasing her oral intake. She continues to be a mobile and quite weak and lethargic with an overall poor prognosis. Patient's bilateral lower extremities in the ankle area continue to be 2+ pitting edema with significant wasting noted. Cultures currently pending from fluid analysis. Review of systems: Constitutional: Reports increased fatigue Cardiovascular: No reports of chest pain or palpitations Respiratory: Reports mild shortness of breath GI: No reports of nausea, vomiting, or diarrhea, reports decreased appetite : No reports of dysuria or retention Neurovascular: Reports weakness with no reports of numbness All medications have been reviewed Active Medications Alprazolam (Alprazolam 0.25 Mg Tab) 0.25 mg PO TID PRN PRN Reason: Anxiety Aspirin (Aspirin 81 Mg) 81 mg PO DAILY [facility] Last Admin: 04/27/20 08:58 Dose: 81 mg Documented by: Atorvastatin Calcium (Atorvastatin 20 Mg Tab) 20 mg PO DAILY [facility] Last Admin: 04/27/20 08:58 Dose: 20 mg Documented by: Azithromycin (Azithromycin 500 Mg Tab) 500 mg PO DAILY@1700 [facility] Last Admin: 04/26/20 18:29 Dose: 500 mg Documented by: Folic Acid (Folic Acid 1 Mg Tab) 1 mg PO DAILY@1200 [facility] Last Admin: 04/27/20 08:58 Dose: 1 mg Documented by: Furosemide (Furosemide 10 Mg/Ml 4 Ml Vial) 40 mg IV DAILY [facility] Last Admin: 04/27/20 08:58 Dose: 40 mg Documented by: Heparin Sodium (Porcine) (Heparin Sodium,Porcine 5,000 Unit/Ml 1 Ml Vial) 3,000 unit SQ Q12HR [facility] Last Admin: 04/27/20 08:58 Dose: 3,000 unit Documented by: Dextrose/Sodium Chloride (Dextrose 5%-Ns Iv Soln) 1,000 mls @ 75 mls/hr IV .[id number] [facility] Last Admin: 04/27/20 12:00 Dose: 75 mls/hr Documented by: Ertapenem 0.5 gm/ Sodium (Chloride) 50 mls @ 100 mls/hr IVPB Q24H [facility] Lidocaine/Prilocaine (Lidocaine-Prilocaine 2.5-2.5% Cream 5 Gm Tube) 1 applic TOPICAL DAILY [facility] Last Admin: 04/27/20 09:00 Dose: Not Given Documented by: Megestrol Acetate (Megestrol 400 Mg/10 Ml Cup) 800 mg PO DAILY [facility] Last Admin: 04/27/20 09:00 Dose: 800 mg Documented by: Metoprolol Succinate (Metoprolol Succinate (Er) 25 Mg Tab.Er.24h) 12.5 mg PO BID [facility] Last Admin: 04/27/20 08:59 Dose: 12.5 mg Documented by: Miscellaneous Information (Pneumonia Protocol Utilized 1 Each Misc) 1 each PO ONCE PRN PRN Reason: Per Protocol Miscellaneous Information (Magnesium Replacement Protocol 1 Each Misc) 1 each MISCELLANE DAILY PRN; Protocol PRN Reason: Per Protocol Miscellaneous Information (Phosphorus Replacement Protoco 1 Each Misc) 1 each MISCELLANE DAILY PRN; Protocol PRN Reason: Per Protocol Miscellaneous Information (Potassium Replacement Protocol 1 Each Misc) 1 each MISCELLANE DAILY PRN; Protocol PRN Reason: Per Protocol Multivitamins (Multivitamins, Thera 1 Each Tab) 1 each PO DAILY@1200 [facility] Last Admin: 04/27/20 08:59 Dose: 1 each Documented by: Pantoprazole Sodium (Pantoprazole 40 Mg/10 Ml Vial) 40 mg IVP BID [facility] Last Admin: 04/27/20 08:58 Dose: 40 mg Documented by: Thiamine HCl (Thiamine 100 Mg Tab) 100 mg PO DAILY@1200 [facility] Last Admin: 04/27/20 08:58 Dose: 100 mg Documented by: Objective - Vital Signs Vital signs: Vital Signs Temp 98.2 F 04/27/20 08:00 Pulse 90 04/27/20 08:00 Resp 14 04/27/20 08:00 BP 103/62 04/27/20 08:00 Pulse Ox 98 04/27/20 08:00 Intake & Output 04/26/20 04/27/20 04/27/20 18:59 06:59 18:59 Intake Total 450 Output Total 800 600 Balance -350 -600 Intake: Intake, IV Titration 450 Amount Sodium Chloride 0.9% 1, 450 000 ml @ 75 mls/hr IV . [id number] [facility] Rx#:[id number] Output: Urine 800 600 Other: Voiding Method Indwelling Catheter Indwelling Catheter - Exam Gen: This is a 79-year-old female lying in bed, asleep although arousable, alert and oriented 2. Thin built, cachectic, lethargic Temp is 98.2F, pulse is 90, respirations are 14, blood pressure is 103/62, oxygen saturation is 98% on 4 L via nasal cannula. HEENT: Head is atraumatic, normocephalic. Pupils equal, round. Sclerae is anicteric. Oral mucosa is dry NECK: Supple. No JVD. No lymphadenopathy. No thyromegaly. LUNGS: Diminished breath sounds bilaterally with some scattered rhonchi and crackles noted. No intercostal retractions. HEART: S1, S2 are muffled ABDOMEN: Soft. Thin, cachectic, Bowel sounds are present. No masses. No tenderness. EXTREMITIES: No calf tenderness. Bilateral lower extremity edema noted of the ankles 1-2+ pitting NEUROLOGICAL: Patient is asleep although arousable , alert and oriented x2. Cranial nerves 2 through 12 are grossly intact. Diffusely weak - Labs CBC & Chem 7: 04/27/20 10:05 04/27/20 10:05 Labs: Abnormal Lab Results - Last 24 Hours (Table) 04/26/20 04/26/20 04/26/20 Range/Units 06:03 11:49 16:34 Sodium 146 H (135-145) mmol/L Potassium 3.1 L (3.5-5.5) mmol/L Chloride 113 H (96-109) mmol/L BUN 80.0 H (9.0-27.0) mg/dL BUN/Creatinine Ratio 88.89 H (12.00-20.00) Ratio Glucose 161 H (70-110) mg/dL POC Glucose (mg/dL) 179 H 180 H (75-99) mg/dL Calcium 7.8 L (8.7-10.3) mg/dL Cortisol 60.5 H (3.10-22.40) ug/dL 04/26/20 04/27/20 Range/Units 20:22 06:57 Sodium (135-145) mmol/L Potassium (3.5-5.5) mmol/L Chloride (96-109) mmol/L BUN (9.0-27.0) mg/dL BUN/Creatinine Ratio (12.00-20.00) Ratio Glucose (70-110) mg/dL POC Glucose (mg/dL) 153 H 149 H (75-99) mg/dL Calcium (8.7-10.3) mg/dL Cortisol (3.10-22.40) ug/dL Microbiology - Last 24 Hours (Table) 04/24/20 15:45 Blood Culture Gram Stain - Final Blood Blood Culture - Final Escherichia coli 04/25/20 15:30 Gram Stain - Preliminary Ascites Fluid Body Fluid Culture - Preliminary 04/25/20 12:25 Blood Culture - Preliminary Blood No Growth after 24 hours Assessment and Plan Assessment: Significant wasting and weakness and dehydration, secondary to pancreatic cancer Pancreatic cancer, on chemotherapy Bilateral pleural effusion, possible pneumonia Bacteremia with preliminary blood culture showing gram-negative bacilli Ruled out congestive heart failure, non-ischemic cardiomyopathy with an ejection fraction of 35-40% Increased white blood count, possible sepsis Thrombocytopenia Hypokalemia Increased BUN Hypoalbuminemia with severe protein calorie malnutrition with a body mass index of 14.6 Increased AST Hypertension Gait dysfunction Hyperlipidemia Cholecystectomy History of nicotine dependence Change in mental status, acute metabolic encephalopathy, multifactorial Full code Recommendations and discussion: Recommend to continue current medications, management, and symptomatic treatment. Continue to encourage oral intake as patient continues to have no appetite and poor oral intake. Multiple medical consultations including oncology following closely. Discussion of further treatment with family and patient along with CODE STATUS needs to be addressed. Will continue to monitor vital signs and labs closely. Due to multiple complex medical issues, prognosis is poor and guarded. Need to discuss treatment plan with oncology team. Further recommendations to follow.
[2020-04-27 16:28] LABS: African American GFR (CKD) 56 (>60 ml/min/1.73 sqM); Anion Gap 8 mmol/L; Blood Urea Nitrogen 71 mg/dL (7-17); Carbon Dioxide 23 mmol/L (22-30); Chloride 118 mmol/L (98-107); Glucose 128 mg/dL (74-99); Magnesium 1.8 mg/dL (1.6-2.3); Non-African American GFR(CKD) 49 (>60 ml/min/1.73 sqM); Sodium 149 mmol/L (137-145)
[2020-04-27 16:33] LABS: Potassium 2.7 mmol/L (3.5-5.1)
[2020-04-27 17:07] LABS: Glucose,Whole Blood 158 mg/dL (75-99)
[2020-04-27 20:35] LABS: Glucose,Whole Blood 196 mg/dL (75-99)
--- NOTE | 2020-04-27 22:27 | PN ---
PROGRESS NOTE DATE OF SERVICE: 04/27/2020 REASON FOR FOLLOWUP: ESBL E coli bacteremia. Source possibly abdominal. INTERVAL HISTORY: The patient is currently afebrile. The patient is breathing comfortably. Denies having any chest pain or cough. No nausea, vomiting, abdominal pain or diarrhea. PHYSICAL EXAMINATION: Blood pressure 98/58 with a pulse of 91, temperature 97.5. She is 96% on 4 L. General description is an elderly female lying in bed in no distress. RESPIRATORY SYSTEM: Unlabored breathing. Clear to auscultation anteriorly. HEART: S1, S2. Regular rate and rhythm. ABDOMEN: Soft. No tenderness. LABS: Hemoglobin is 10, white count 23.5. BUN of 71, creatinine 1.09. DIAGNOSTIC IMPRESSION AND PLAN: Patient with extended-spectrum beta-lactamase Escherichia coli bacteremia. Source is likely abdominal, status post paracentesis. Those cultures are pending. Patient is covered with Invanz. Dose has been cut back by the pharmacy. Will discuss with them. The culture repeat pending. Continue with supportive care. MMODL / IJN: [id number] /
[2020-04-27] MEDS: ERTAPENEM 0.5 GM in SODIUM CHLORIDE 0.9% 50 ML IVPB SCH (22:55)
[2020-04-27] MEDS ORDERED: POTASSIUM CHLORIDE ER 20 MEQ TAB.ER PO STA (23:07)
[2020-04-28] MEDS: DEXTROSE 5%-0.9% NACL 1,000 ML IV SCH (01:33)
[2020-04-28 07:03] LABS: Basophils # (A) 0.1 k/uL (0-0.2); Basophils % (A) 0 %; Eosinophils % (A) 0 %; HCT 31.9 % (34.0-46.0); HGB 11.1 gm/dL (11.4-16.0); Lymphocytes # (A) 0.7 k/uL (1.0-4.8); Lymphocytes % (A) 3 %; MCH 33.2 pg (25.0-35.0); MCHC 34.7 g/dL (31.0-37.0); MCV 95.7 fL (80.0-100.0); Mean Platelet Volume 9.4; Monocytes # (A) 0.4 k/uL (0-1.0); Monocytes % (A) 2 %; Neutrophils # (A) 24.6 k/uL (1.3-7.7); Neutrophils % (A) 95 %; Platelet Count 110 k/uL (150-450); RBC 3.34 m/uL (3.80-5.40); RDW 15.2 % (11.5-15.5); WBC 25.9 k/uL (3.8-10.6)
[2020-04-28 07:41] LABS: Glucose,Whole Blood 145 mg/dL (75-99)
[2020-04-28 07:58] LABS: ABG Base Excess -0.4 mmol/L; ABG HCO3 23 mmol/L (21-25); ABG PCO2 32 mmHg (35-45); ABG PH 7.47 (7.35-7.45); ABG PO2 336 mmHg (83-108); ABG TCO2 24 mmol/L (19-24); Allen Test Performed? Yes
--- NOTE | 2020-04-28 08:21 | P.PN ---
Progress Note - Text Progress Note Date: 04/28/20 I responded to the rapid response called by nursing staff with concerns about hypotension and hypoxia. Patient was recently diagnosed with pancreatic cancer and currently admitted to the hospital. Apparently nursing staff were unable to get oxygen reading using finger pulse ox machine. Blood pressure was measured as 70/40 her do this morning. Patient is awake and alert. She appears chronically ill and emaciated. She is able to speak in full sentences. She denies any shortness of breath. I advised to give her 500 mL normal saline bolus and check a blood gas as the finger pulse ox machine was not picking up a good waveform. Mostly has returned normal with O2 sat of 100% and PaO2 of 330. Blood pressure improved significantly with IV fluid bolus. Patient appeared confused and seemed inappropriate to discuss her clinical condition or CODE STATUS. I advised nursing staff to contact primary team to follow up with patient and her 2 son's for further discussion about goals of care. I told the nurse to put the patient on 4 L of oxygen via nasal cannula and continue to monitor clinical status closely.
[2020-04-28] MEDS: FUROSEMIDE 10 MG/ML 4 ML VIAL IV SCH (11:27)
[2020-04-28] MEDS: ASPIRIN 81 MG PO SCH (11:42)
[2020-04-28] MEDS: METOPROLOL SUCCINATE (ER) 25 MG TAB.ER.24H PO SCH ×2 (11:42→20:00)
[2020-04-28] MEDS: POTASSIUM CHLORIDE ER 20 MEQ TAB.ER PO SCH ×2 (11:43→20:10)
[2020-04-28] MEDS: FOLIC ACID 1 MG TAB PO SCH (11:43)
[2020-04-28] MEDS: ATORVASTATIN 20 MG TAB PO SCH (11:43)
[2020-04-28] MEDS: MULTIVITAMINS, THERA 1 EACH TAB PO SCH (11:43)
[2020-04-28] MEDS: HEPARIN SODIUM,PORCINE 5,000 UNIT/ML 1 ML VIAL SQ SCH ×2 (11:43→20:11)
[2020-04-28] MEDS: PANTOPRAZOLE 40 MG/10 ML VIAL IVP SCH ×2 (11:44→20:11)
[2020-04-28] MEDS: MEGESTROL 400 MG/10 ML CUP PO SCH (11:44)
[2020-04-28 11:59] LABS: Glucose,Whole Blood 72 mg/dL (75-99)
[2020-04-28 13:36] LABS: African American GFR (CKD) 62.5 (60.0-200.0); Anion Gap 9.8 mmol/L (4.00-12.00); Calcium 7.8 mg/dL (8.7-10.3); Carbon Dioxide 24.2 mmol/L (21.6-31.8); Magnesium 1.7 mg/dL (1.5-2.4); Non-African American GFR(CKD) 53.9 (60.0-200.0); Potassium 3.1 mmol/L (3.5-5.5)
[2020-04-28] MEDS ORDERED: Magnesium Replacement Protocol 1 EACH MISC MISCELLANE PRN (13:50)
[2020-04-28] MEDS ORDERED: Potassium Replacement Protocol 1 EACH MISC MISCELLANE PRN (13:50)
[2020-04-28] MEDS: THIAMINE 100 MG TAB PO SCH (13:53)
[2020-04-28] MEDS: LIDOCAINE-PRILOCAINE 2.5-2.5% CREAM 5 GM TUBE TOPICAL SCH (13:53)
[2020-04-28] MEDS ORDERED: DEXTROSE 5%-0.9% NACL 1,000 ML with POTASSIUM CHLORIDE 20 MEQ IV SCH ×2 (14:19)
--- NOTE | 2020-04-28 14:29 | P.PN ---
Subjective Progress Note Date: 04/28/20 The patient remains very weak, as well as partially confused. Case discussed with the nursing. She had A team called earlier this a.m. for marked lethargy, and inability to get vitals properly. She did improve with IV fluids. Clinically she appears quite dry. According to nursing oral intake has been minimal. No fever/chills/nausea/vomiting. Objective - Vital Signs Vital signs: Vital Signs Temp 97.4 F L 04/28/20 13:36 Pulse 70 04/28/20 08:00 Resp 20 04/28/20 08:00 BP 100/69 04/28/20 13:36 Pulse Ox 81 L 04/28/20 08:00 Intake & Output 04/27/20 04/28/20 04/28/20 18:59 06:59 18:59 Output Total 375 Balance -375 Weight 38.555 kg 38.555 kg Output: Urine 375 Other: Voiding Method Indwelling Catheter Indwelling Catheter Indwelling Catheter - Constitutional General appearance: Present: no acute distress - EENT EENT Comment(s): Dry oral mucosa Eyes: Present: EOMI ENT: Present: hearing grossly normal - Respiratory Respiratory: bilateral: CTA - Cardiovascular Rhythm: regular Heart sounds: normal: S1, S2 - Gastrointestinal General gastrointestinal: Present: normal bowel sounds, soft - Integumentary Integumentary: Present: normal - Neurologic Neurologic: Present: CNII-XII intact - Musculoskeletal Musculoskeletal: Present: generalized weakness - Psychiatric Psychiatric Comment(s): Currently confused - Labs CBC & Chem 7: 04/28/20 06:34 04/28/20 06:34 Labs: Abnormal Lab Results - Last 24 Hours (Table) 04/27/20 04/27/20 04/27/20 Range/Units 15:18 17:05 20:33 WBC (3.8-10.6) k/uL RBC (3.80-5.40) m/uL Hgb (11.4-16.0) gm/dL Hct (34.0-46.0) % Plt Count (150-450) k/uL Neutrophils # (1.3-7.7) k/uL Lymphocytes # (1.0-4.8) k/uL ABG pH (7.35-7.45) ABG pCO2 (35-45) mmHg ABG pO2 (83-108) mmHg ABG O2 Saturation (94-97) % Sodium 149 H (137-145) mmol/L Potassium 2.7 L* (3.5-5.1) mmol/L Chloride 118 H (98-107) mmol/L BUN 71 H (7-17) mg/dL Creatinine 1.09 H (0.52-1.04) mg/dL Est GFR (CKD-EPI)NonAf (60.0-200.0) BUN/Creatinine Ratio (12.00-20.00) Ratio Glucose 128 H (74-99) mg/dL POC Glucose (mg/dL) 158 H 196 H (75-99) mg/dL Calcium 8.0 L (8.4-10.2) mg/dL 04/28/20 04/28/20 04/28/20 Range/Units 06:34 06:34 07:30 WBC 25.9 H (3.8-10.6) k/uL RBC 3.34 L (3.80-5.40) m/uL Hgb 11.1 L (11.4-16.0) gm/dL Hct 31.9 L (34.0-46.0) % Plt Count 110 L (150-450) k/uL Neutrophils # 24.6 H (1.3-7.7) k/uL Lymphocytes # 0.7 L (1.0-4.8) k/uL ABG pH (7.35-7.45) ABG pCO2 (35-45) mmHg ABG pO2 (83-108) mmHg ABG O2 Saturation (94-97) % Sodium 153 H (137-145) mmol/L Potassium 3.1 L (3.5-5.1) mmol/L Chloride 119 H (98-107) mmol/L BUN 69.0 H (7-17) mg/dL Creatinine (0.52-1.04) mg/dL Est GFR (CKD-EPI)NonAf 53.9 L (60.0-200.0) BUN/Creatinine Ratio 69.00 H (12.00-20.00) Ratio Glucose 142 H (74-99) mg/dL POC Glucose (mg/dL) 145 H (75-99) mg/dL Calcium 7.8 L (8.4-10.2) mg/dL 04/28/20 04/28/20 Range/Units 07:54 11:58 WBC (3.8-10.6) k/uL RBC (3.80-5.40) m/uL Hgb (11.4-16.0) gm/dL Hct (34.0-46.0) % Plt Count (150-450) k/uL Neutrophils # (1.3-7.7) k/uL Lymphocytes # (1.0-4.8) k/uL ABG pH 7.47 H (7.35-7.45) ABG pCO2 32 L (35-45) mmHg ABG pO2 336 H (83-108) mmHg ABG O2 Saturation 100.0 H (94-97) % Sodium (137-145) mmol/L Potassium (3.5-5.1) mmol/L Chloride (98-107) mmol/L BUN (7-17) mg/dL Creatinine (0.52-1.04) mg/dL Est GFR (CKD-EPI)NonAf (60.0-200.0) BUN/Creatinine Ratio (12.00-20.00) Ratio Glucose (74-99) mg/dL POC Glucose (mg/dL) 72 L (75-99) mg/dL Calcium (8.4-10.2) mg/dL Microbiology - Last 24 Hours (Table) 04/27/20 07:54 Blood Culture - Preliminary Blood No Growth after 24 hours 04/25/20 15:30 Anaerobic Culture - Preliminary Ascites Fluid 04/25/20 15:30 Gram Stain - Preliminary Ascites Fluid Body Fluid Culture - Preliminary 04/25/20 12:25 Blood Culture - Preliminary Blood No Growth after 48 hours Assessment and Plan (1) Dehydration Narrative/Plan: The patient was recently on fluid restriction and diuresis, presumably for ascites. Her oral intake has been very minimal. She does appears to have developed more severe dehydration, with marked increase in BUN as well as BUN/creatinine ratio, sodium, and drop in potassium. This is likely contributing to her increased lethargy and weakness, as well as intermittent confusion. - Discontinue Lasix - D5.9 at 75 ml/h, and add KCl in each bag - Follow labs, as well as physical exam Current Visit: Yes Status: Acute Code(s): E86.0 - DEHYDRATION SNOMED Code(s): 80306621 (2) Gram-negative bacteremia Narrative/Plan: Culture positive for ESBL. Patient is on Invanz. ID following. Repeat Cultures negative Current Visit: Yes Status: Acute Code(s): R78.81 - BACTEREMIA SNOMED Code(s): 244063436029 (3) Severe protein-calorie malnutrition Narrative/Plan: The patient had had weight loss even prior to starting treatment related to her cancer. Since chemotherapy, oral intake has been progressively reduced. The patient was starting to improve slightly, but has suffered a further setback due to sepsis from bacteremia. - At this time the patient is very cachectic, with oral intake very minimal. We had recommended TPN temporarily to try to improve her nutritional status and functioning. Dietary has recommended against TPN as the patient has a functioning gut. Clinically I'm doubtful if the patient will be able to tolerate an in situ NG tube. However we will try the same first. NG tube placement has been ordered, along with dietitian consult for tube feeds. If the patient is unable to tolerate the same, then she will definitely need TPN. Current Visit: Yes Status: Acute Code(s): E43 - UNSPECIFIED SEVERE PROTEIN- CALORIE MALNUTRITION SNOMED Code(s): 894146451 (4) Pancreatic cancer Narrative/Plan: The patient has localized pancreatic cancer without evidence of metastatic disease. Therefore she did choose active, aggressive treatment. Tolerance of her current regimen has been poor though some of the symptoms could be related to bacteremia. If the patient is able to recover from her acute situation, the plan would be to resume treatment with dose reduction or change to a different regimen. - However if her performance status continues to be the same despite nutritional support, then she is unlikely to be a candidate for further treatment. We will therefore follow closely how she does with initiation of additional nutritional support. Current Visit: Yes Status: Acute Code(s): C25.9 - MALIGNANT NEOPLASM OF PANCREAS, UNSPECIFIED SNOMED Code(s): 075559280
[2020-04-28] MEDS: MAGNESIUM SULFATE-D5W PMX 1 GM in DEXTROSE/WATER 1 100ML.BAG IVPB SCH ×2 (15:13→16:44)
[2020-04-28] MEDS: POTASSIUM CHLORIDE 10 MEQ in WATER FOR INJECTION 1 100ML.BAG IVPB SCH ×4 (15:13→20:28)
[2020-04-28] MEDS: D5-0.9% NACL WITH KCL 20 MEQ/L 1,000 ML IV SCH (16:43)
[2020-04-28 16:54] LABS: Glucose,Whole Blood 95 mg/dL (75-99)
--- NOTE | 2020-04-28 17:45 | XR ---
EXAMINATION TYPE: XR chest 1V DATE OF EXAM: 04/28/2020 COMPARISON: April 25, 2020 HISTORY: Check tube placement TECHNIQUE: Single view FINDINGS: There is right central venous catheter with tip in the superior vena cava. There is nasogas tric tube in the stomach. There are chest leads. There is blunting of the costophrenic angles. There is mild infiltrate at the lung bases. There is no heart failure. There is biliary stent noted. There are clips from cholecystectomy. IMPRESSION: There is improvement in the bilateral lower lobe pneumonia compared to old exam. No heart failure. Mild pleural effusions unchanged.
[2020-04-28] MEDS: AZITHROMYCIN 500 MG TAB PO SCH (18:08)
[2020-04-28] MEDS: ERTAPENEM 0.5 GM in SODIUM CHLORIDE 0.9% 50 ML IVPB SCH (22:10)
[2020-04-29 00:38] LABS: Glucose,Whole Blood 190 mg/dL (75-99)
[2020-04-29] MEDS: D5-0.9% NACL WITH KCL 20 MEQ/L 1,000 ML IV SCH ×2 (05:58→18:12)
[2020-04-29 06:13] LABS: Glucose,Whole Blood 104 mg/dL (75-99)
[2020-04-29 07:40] LABS: Basophils % (A) 0 %; Eosinophils # (A) 0.1 k/uL (0-0.7); Eosinophils % (A) 0 %; HCT 33.2 % (34.0-46.0); HGB 11.4 gm/dL (11.4-16.0); Lymphocytes # (A) 0.7 k/uL (1.0-4.8); Lymphocytes % (A) 3 %; MCH 33.1 pg (25.0-35.0); MCHC 34.3 g/dL (31.0-37.0); MCV 96.6 fL (80.0-100.0); Monocytes # (A) 0.5 k/uL (0-1.0); Monocytes % (A) 2 %; Neutrophils # (A) 24.8 k/uL (1.3-7.7); Neutrophils % (A) 95 %; Platelet Count 104 k/uL (150-450); RBC 3.44 m/uL (3.80-5.40); RDW 15.3 % (11.5-15.5); WBC 26.2 k/uL (3.8-10.6)
[2020-04-29] MEDS: HEPARIN SODIUM,PORCINE 5,000 UNIT/ML 1 ML VIAL SQ SCH ×2 (08:07→18:46)
[2020-04-29] MEDS: ATORVASTATIN 20 MG TAB PO SCH (09:07)
[2020-04-29] MEDS: MULTIVITAMINS, THERA 1 EACH TAB PO SCH (09:07)
[2020-04-29] MEDS: MEGESTROL 400 MG/10 ML CUP PO SCH (09:07)
[2020-04-29] MEDS: FOLIC ACID 1 MG TAB PO SCH (09:07)
[2020-04-29] MEDS: PANTOPRAZOLE 40 MG/10 ML VIAL IVP SCH ×2 (09:07→19:42)
[2020-04-29] MEDS: THIAMINE 100 MG TAB PO SCH (09:07)
[2020-04-29] MEDS: ASPIRIN 81 MG PO SCH (09:07)
[2020-04-29] MEDS: LIDOCAINE-PRILOCAINE 2.5-2.5% CREAM 5 GM TUBE TOPICAL SCH (09:08)
[2020-04-29] MEDS: METOPROLOL SUCCINATE (ER) 25 MG TAB.ER.24H PO SCH ×2 (11:21→19:16)
[2020-04-29] MEDS: POTASSIUM CHLORIDE ER 20 MEQ TAB.ER PO SCH ×2 (11:21→19:43)
[2020-04-29 11:57] LABS: Glucose,Whole Blood 142 mg/dL (75-99)
[2020-04-29 12:39] LABS: Albumin 2.6 g/dL (3.80-4.90); Albumin/Globulin Ratio 1.53 (1.60-3.17); Anion Gap 9.3 mmol/L (4.00-12.00); BUN/Creat Ratio 74.44 Ratio (12.00-20.00); Calcium 7.8 mg/dL (8.7-10.3); Carbon Dioxide 22.7 mmol/L (21.6-31.8); Globulin 1.7 g/dL (1.6-3.3); Magnesium 2.1 mg/dL (1.5-2.4); Non-African American GFR(CKD) 61.2 (60.0-200.0); Potassium 4.3 mmol/L (3.5-5.5); Total Bilirubin 0.5 mg/dL (0.2-1.2); Total Protein 4.3 g/dL (6.2-8.2)
[2020-04-29] MEDS: AZITHROMYCIN 500 MG TAB PO SCH (18:08)
--- NOTE | 2020-04-29 22:55 | PN ---
PROGRESS NOTE DATE OF SERVICE: 04/29/2020 REASON FOR FOLLOWUP: ESBL E coli bacteremia source likely abdominal. INTERVAL HISTORY: Patient is currently afebrile. She is breathing comfortably. Denies having any chest pain or shortness of breath, minimal cough. Some abdominal discomfort but no vomiting or diarrhea reported. PHYSICAL EXAMINATION: Blood pressure 90/59, pulse 100, temperature 97.1. She is 92% on 4 L nasal cannula. General description is an elderly female lying in bed in no distress. Respiratory system: Unlabored breathing. Clear to auscultation anteriorly. Heart S1, S2. Regular rate and rhythm. Abdomen soft, nontender. No guarding. No rigidity. LABORATORY DATA: Hemoglobin 11.4, white count 6.2, BUN of 57, creatinine 0.9. Blood culture repeat is negative. DIAGNOSTIC IMPRESSION AND PLAN: Patient with ESBL E coli bacteremia source likely abdominal. This patient did have persistent worsening of her white count. Antibiotic adjusted to meropenem, if still worsening, we will recommend repeating a CT of abdomen and pelvis to make sure no evidence of any abscess that may need to be drained. Continue supportive care. MMODL / IJN: [id number] /
[2020-04-29] MEDS: MEROPENEM 1 GM in SODIUM CHLORIDE 0.9% 100 ML IVPB SCH (23:16)
[2020-04-30 00:39] LABS: Glucose,Whole Blood 113 mg/dL (75-99)
--- NOTE | 2020-04-30 01:35 | P.PN ---
Subjective Progress Note Date: 04/28/20 Principal diagnosis: Significant wasting and weakness and dehydration, secondary to pancreatic cancer Pancreatic cancer, on chemotherapy Bilateral pleural effusion, possible pneumonia This is a 79-year-old female who was recently admitted with significant wasting, weakness, dehydration, and poor oral intake and is being closely monitored. Patient currently receiving treatments for pancreatic cancer and oncology is following closely. Patient underwent abdominal paracentesis and fluid analysis is currently pending. Patient is maintained on antibiotics in the form of Zithr omax along with IV cefepime and will continue at this time. Blood cultures preliminary showing gram-negative bacilli and awaiting culture finalization and bacteremia clearance. Infectious disease is following. Patient continues to have extremely poor oral intake and needs encouragement. There is a possibility of discussion for enteric nutrition. Dietitian's are following. Patient is maintained on 40 mg of IV Lasix daily and will continue at this time. Patient continues to have bilateral lower extremity edema with inability to get up out of bed. PT/OT to evaluate the patient and awaiting recommendations. Patient continues to be lethargic and somewhat confused but is arousable and responding to simple commands. Patient is currently maintained on 4 L of oxygen via nasal cannula. Potassium found to be 3.1 and currently being replaced, current sodium is 146 and fluids have been discontinued. 04/27/2020 Patient is seen and evaluated in follow-up and continues to be closely mon itored. Potassium was found to be critically low at 2.4 and is currently being replaced. Creatinine is 1.21 and sodium is 148. White blood count is also increased at 23.5. Multiple medical consultations including oncology following as patient is currently active and receiving treatments. Patient's oral intake continues to be poor and is on pured diet. Discussed with nursing staff to encourage oral intake and also discussed with the patient about the importance of increasing her oral intake. She continues to be a mobile and quite weak and lethargic with an overall poor prognosis. Patient's bilateral lower extremities in the ankle area continue to be 2+ pitting edema with significant wasting noted. Cultures currently pending from fluid analysis. 04/28/2020 Patient is currently resting in the bed awake alert and oriented but does communicate slowly. Patient is cachectic and malnourished. Patient did have an episode of hypotension and rapid response team was called. Patient was given fluid boluses with improvement in blood pressure. Denied any complaints of chest pain or shortness of breath. No nausea vomiting or abdominal pain. Laboratory test showed WBC 25.9, hemoglobin 11.1 and platelets 110 Sodium 153, potassium 3.1 and chloride 119 and BUN 16 and creatinine 1.0 and magnesium 1.7 Patient is being followed by oncology. Current medications reviewed. Review of systems: Constitutional: Reports increased fatigue Cardiovascular: No reports of chest pain or palpitations Respiratory: Reports mild shortness of breath GI: No reports of nausea, vomiting, or diarrhea, reports decreased appetite : No reports of dysuria or retention Neurovascular: Reports weakness with no reports of numbness All medications have been reviewed Objective - Vital Signs Vital signs: Vital Signs Temp 96.4 F L 04/28/20 14:00 Pulse 75 04/28/20 14:00 Resp 18 04/28/20 14:00 BP 108/74 04/28/20 14:00 Pulse Ox 96 04/28/20 14:00 Intake & Output 04/27/20 04/28/20 04/28/20 18:59 06:59 18:59 Output Total 375 Balance -375 Weight 38.555 kg 38.555 kg Output: Urine 375 Other: Voiding Method Indwelling Catheter Indwelling Catheter Indwelling Catheter - Exam - Exam Gen: This is a 79-year-old female lying in bed, asleep although arousable, alert and oriented 2. Thin built, cachectic, lethargic Temp is 98.2F, pulse is 90, respirations are 14, blood pressure is 103/62, oxygen saturation is 98% on 4 L via nasal cannula. HEENT: Head is atraumatic, normocephalic. Pupils equal, round. Sclerae is anicteric. Oral mucosa is dry NECK: Supple. No JVD. No lymphadenopathy. No thyromegaly. LUNGS: Diminished breath sounds bilaterally with some scattered rhonchi and crackles noted. No intercostal retractions. HEART: S1, S2 are muffled ABDOMEN: Soft. Thin, cachectic, Bowel sounds are present. No masses. No tenderness. EXTREMITIES: No calf tenderness. Bilateral lower extremity edema noted of the ankles 1-2+ pitting NEUROLOGICAL: Patient is asleep although arousable , alert and oriented x2. Cranial nerves 2 through 12 are grossly intact. Diffusely weak - Labs CBC & Chem 7: 04/29/20 07:09 04/29/20 07:09 Labs: Abnormal Lab Results - Last 24 Hours (Table) 04/27/20 04/28/20 04/28/20 Range/Units 20:33 06:34 06:34 WBC 25.9 H (3.8-10.6) k/uL RBC 3.34 L (3.80-5.40) m/uL Hgb 11.1 L (11.4-16.0) gm/dL Hct 31.9 L (34.0-46.0) % Plt Count 110 L (150-450) k/uL Neutrophils # 24.6 H (1.3-7.7) k/uL Lymphocytes # 0.7 L (1.0-4.8) k/uL ABG pH (7.35-7.45) ABG pCO2 (35-45) mmHg ABG pO2 (83-108) mmHg ABG O2 Saturation (94-97) % Sodium 153 H (135-145) mmol/L Potassium 3.1 L (3.5-5.5) mmol/L Chloride 119 H (96-109) mmol/L BUN 69.0 H (9.0-27.0) mg/dL Est GFR (CKD-EPI)NonAf 53.9 L (60.0-200.0) BUN/Creatinine Ratio 69.00 H (12.00-20.00) Ratio Glucose 142 H (70-110) mg/dL POC Glucose (mg/dL) 196 H (75-99) mg/dL Calcium 7.8 L (8.7-10.3) mg/dL 04/28/20 04/28/20 04/28/20 Range/Units 07:30 07:54 11:58 WBC (3.8-10.6) k/uL RBC (3.80-5.40) m/uL Hgb (11.4-16.0) gm/dL Hct (34.0-46.0) % Plt Count (150-450) k/uL Neutrophils # (1.3-7.7) k/uL Lymphocytes # (1.0-4.8) k/uL ABG pH 7.47 H (7.35-7.45) ABG pCO2 32 L (35-45) mmHg ABG pO2 336 H (83-108) mmHg ABG O2 Saturation 100.0 H (94-97) % Sodium (135-145) mmol/L Potassium (3.5-5.5) mmol/L Chloride (96-109) mmol/L BUN (9.0-27.0) mg/dL Est GFR (CKD-EPI)NonAf (60.0-200.0) BUN/Creatinine Ratio (12.00-20.00) Ratio Glucose (70-110) mg/dL POC Glucose (mg/dL) 145 H 72 L (75-99) mg/dL Calcium (8.7-10.3) mg/dL Microbiology - Last 24 Hours (Table) 04/25/20 12:25 Blood Culture - Preliminary Blood No Growth after 72 hours 04/27/20 07:54 Blood Culture - Preliminary Blood No Growth after 24 hours 04/25/20 15:30 Anaerobic Culture - Preliminary Ascites Fluid 04/25/20 15:30 Gram Stain - Preliminary Ascites Fluid Body Fluid Culture - Preliminary Assessment and Plan Assessment: Significant wasting and weakness and dehydration, secondary to pancreatic cancer Pancreatic cancer, on chemotherapy Bilateral pleural effusion, possible pneumonia Bacteremia with preliminary blood culture showing gram-negative bacilli Ruled out congestive heart failure, non-ischemic cardiomyopathy with an ejection fraction of 35-40% Increased white blood count, possible sepsis Thrombocytopenia Hypokalemia Increased BUN Hypoalbuminemia with severe protein calorie malnutrition with a body mass index of 14.6 Increased AST Hypertension Gait dysfunction Hyperlipidemia Cholecystectomy History of nicotine dependence Change in mental status, acute metabolic encephalopathy, multifactorial Full code Recommendations and discussion: Recommend to continue current medications, management, and symptomatic treatment. Continue to encourage oral intake as patient continues to have no appetite and poor oral intake. Multiple medical consultations including oncology following closely. Discussion of further treatment with family and patient nora sauceda with CODE STATUS needs to be addressed. Will continue to monitor vital signs and labs closely. Due to multiple complex medical issues, prognosis is poor and guarded. Need to discuss treatment plan with oncology team. Further recommendations to follow. Time with Patient: Greater than 30
--- NOTE | 2020-04-30 01:40 | P.PN ---
Subjective Progress Note Date: 04/29/20 Principal diagnosis: Significant wasting and weakness and dehydration, secondary to pancreatic cancer Pancreatic cancer, on chemotherapy Bilateral pleural effusion, possible pneumonia This is a 79-year-old female who was recently admitted with significant wasting, weakness, dehydration, and poor oral intake and is being closely monitored. Patient currently receiving treatments for pancreatic cancer and oncology is following closely. Patient underwent abdominal paracentesis and fluid analysis is currently pending. Patient is maintained on antibiotics in the form of Zithr omax along with IV cefepime and will continue at this time. Blood cultures preliminary showing gram-negative bacilli and awaiting culture finalization and bacteremia clearance. Infectious disease is following. Patient continues to have extremely poor oral intake and needs encouragement. There is a possibility of discussion for enteric nutrition. Dietitian's are following. Patient is maintained on 40 mg of IV Lasix daily and will continue at this time. Patient continues to have bilateral lower extremity edema with inability to get up out of bed. PT/OT to evaluate the patient and awaiting recommendations. Patient continues to be lethargic and somewhat confused but is arousable and responding to simple commands. Patient is currently maintained on 4 L of oxygen via nasal cannula. Potassium found to be 3.1 and currently being replaced, current sodium is 146 and fluids have been discontinued. 04/27/2020 Patient is seen and evaluated in follow-up and continues to be closely mon itored. Potassium was found to be critically low at 2.4 and is currently being replaced. Creatinine is 1.21 and sodium is 148. White blood count is also increased at 23.5. Multiple medical consultations including oncology following as patient is currently active and receiving treatments. Patient's oral intake continues to be poor and is on pured diet. Discussed with nursing staff to encourage oral intake and also discussed with the patient about the importance of increasing her oral intake. She continues to be a mobile and quite weak and lethargic with an overall poor prognosis. Patient's bilateral lower extremities in the ankle area continue to be 2+ pitting edema with significant wasting noted. Cultures currently pending from fluid analysis. 04/28/2020 Patient is currently resting in the bed awake alert and oriented but does communicate slowly. Patient is cachectic and malnourished. Patient did have an episode of hypotension and rapid response team was called. Patient was given fluid boluses with improvement in blood pressure. Denied any complaints of chest pain or shortness of breath. No nausea vomiting or abdominal pain. Laboratory test showed WBC 25.9, hemoglobin 11.1 and platelets 110 Sodium 153, potassium 3.1 and chloride 119 and BUN 16 and creatinine 1.0 and magnesium 1.7 Patient is being followed by oncology. 04/29/2020 Patient is currently resting in the bed comfortably. Currently on tube feeding. Patient has been afebrile. Blood pressure is maintained. Otherwise sodium level is still at 153 today. Chloride 121 and IV fluids will be changed to D5 water. Renal function stable. WBC 26.2 Laboratory data showed WBC 26.2 Chest x-ray showed improvement in the bilateral lower lobe pneumonia compared to old exam. Mild pleural effusion unchanged. Patient is being continued on antibiotics in the form of meropenem due to ESBL E. coli bacteremia.. Current medications reviewed. Review of systems: Constitutional: Reports increased fatigue Cardiovascular: No reports of chest pain or palpitations Respiratory: Reports mild shortness of breath GI: No reports of nausea, vomiting, or diarrhea, reports decreased appetite : No reports of dysuria or retention Neurovascular: Reports weakness with no reports of numbness All medications have been reviewed Objective - Vital Signs Vital signs: Vital Signs Temp 97.1 F L 04/29/20 14:00 Pulse 100 04/29/20 14:00 Resp 12 04/29/20 14:00 BP 90/59 04/29/20 14:00 Pulse Ox 92 L 04/29/20 14:00 Intake & Output 04/28/20 04/29/20 04/29/20 18:59 06:59 18:59 Weight 38.555 kg 38.555 kg Other: Voiding Method Indwelling Catheter Indwelling Catheter Indwelling Catheter - Exam - Exam Gen: This is a 79-year-old female lying in bed, asleep although arousable, alert and oriented 2. Thin built, cachectic, lethargic Temp is 98.2F, pulse is 90, respirations are 14, blood pressure is 103/62, oxygen saturation is 98% on 4 L via nasal cannula. HEENT: Head is atraumatic, normocephalic. Pupils equal, round. Sclerae is anicteric. Oral mucosa is dry NECK: Supple. No JVD. No lymphadenopathy. No thyromegaly. LUNGS: Diminished breath sounds bilaterally with some scattered rhonchi and crackles noted. No intercostal retractions. HEART: S1, S2 are muffled ABDOMEN: Soft. Thin, cachectic, Bowel sounds are present. No masses. No tenderness. EXTREMITIES: No calf tenderness. Bilateral lower extremity edema noted of the ankles 1-2+ pitting NEUROLOGICAL: Patient is asleep although arousable , alert and oriented x2. Cranial nerves 2 through 12 are grossly intact. Diffusely weak - Labs CBC & Chem 7: 04/29/20 07:09 04/29/20 07:09 Labs: Abnormal Lab Results - Last 24 Hours (Table) 04/29/20 04/29/20 04/29/20 Range/Units 00:36 06:11 07:09 WBC (3.8-10.6) k/uL RBC (3.80-5.40) m/uL Hct (34.0-46.0) % Plt Count (150-450) k/uL Neutrophils # (1.3-7.7) k/uL Lymphocytes # (1.0-4.8) k/uL Sodium 153 H (135-145) mmol/L Chloride 121 H (96-109) mmol/L BUN 67.0 H (9.0-27.0) mg/dL BUN/Creatinine Ratio 74.44 H (12.00-20.00) Ratio Glucose 118 H (70-110) mg/dL POC Glucose (mg/dL) 190 H 104 H (75-99) mg/dL Calcium 7.8 L (8.7-10.3) mg/dL AST 154 H (13-35) U/L ALT 131 H (8-44) U/L Alkaline Phosphatase 154 H (41-126) U/L Total Protein 4.3 L (6.2-8.2) g/dL Albumin 2.60 L (3.80-4.90) g/dL Albumin/Globulin Ratio 1.53 L (1.60-3.17) g/dL 04/29/20 04/29/20 Range/Units 07:09 11:55 WBC 26.2 H (3.8-10.6) k/uL RBC 3.44 L (3.80-5.40) m/uL Hct 33.2 L (34.0-46.0) % Plt Count 104 L (150-450) k/uL Neutrophils # 24.8 H (1.3-7.7) k/uL Lymphocytes # 0.7 L (1.0-4.8) k/uL Sodium (135-145) mmol/L Chloride (96-109) mmol/L BUN (9.0-27.0) mg/dL BUN/Creatinine Ratio (12.00-20.00) Ratio Glucose (70-110) mg/dL POC Glucose (mg/dL) 142 H (75-99) mg/dL Calcium (8.7-10.3) mg/dL AST (13-35) U/L ALT (8-44) U/L Alkaline Phosphatase (41-126) U/L Total Protein (6.2-8.2) g/dL Albumin (3.80-4.90) g/dL Albumin/Globulin Ratio (1.60-3.17) g/dL Microbiology - Last 24 Hours (Table) 04/25/20 15:30 Gram Stain - Final Ascites Fluid Body Fluid Culture - Final 04/25/20 12:25 Blood Culture - Preliminary Blood No Growth after 96 hours 04/27/20 07:54 Blood Culture - Preliminary Blood No Growth after 48 hours Assessment and Plan Assessment: Significant wasting and weakness and dehydration, secondary to pancreatic cancer Pancreatic cancer, on chemotherapy Bilateral pleural effusion, possible pneumonia E. coli bacteremia Sepsis secondary to above Ruled out congestive heart failure, non-ischemic cardiomyopathy with an ejection fraction of 35-40% Increased white blood count, possible sepsis Thrombocytopenia Hypokalemia Increased BUN Hypoalbuminemia with severe protein calorie malnutrition with a body mass index of 14.6 Increased AST Hypertension Gait dysfunction Hyperlipidemia Cholecystectomy History of nicotine dependence Change in mental status, acute metabolic encephalopathy, multifactorial Full code Recommendations and discussion: Recommend to continue current medications, management, and symptomatic treatment. Continue to encourage oral intake as patient continues to have no appetite and poor oral intake. Multiple medical consultations including oncology following closely. Discussion of further treatment with family and patient along with CODE STATUS needs to be addressed. Will continue to monitor vital signs and labs closely. Due to multiple complex medical issues, prognosis is poor and guarded. Need to discuss treatment plan with oncology team. Further recommendations to follow. Time with Patient: Greater than 30
[2020-04-30] MEDS: DEXTROSE 5% IN WATER 1,000 ML IV SCH ×3 (04:33→22:38)
[2020-04-30 06:12] LABS: Glucose,Whole Blood 136 mg/dL (75-99)
[2020-04-30] MEDS: ASPIRIN 81 MG PO SCH (07:52)
[2020-04-30] MEDS: HEPARIN SODIUM,PORCINE 5,000 UNIT/ML 1 ML VIAL SQ SCH ×2 (07:52→19:35)
[2020-04-30] MEDS: ATORVASTATIN 20 MG TAB PO SCH (07:52)
[2020-04-30] MEDS: MEGESTROL 400 MG/10 ML CUP PO SCH (07:53)
[2020-04-30] MEDS: FOLIC ACID 1 MG TAB PO SCH (07:53)
[2020-04-30] MEDS: LIDOCAINE-PRILOCAINE 2.5-2.5% CREAM 5 GM TUBE TOPICAL SCH (07:53)
[2020-04-30] MEDS: POTASSIUM CHLORIDE ER 20 MEQ TAB.ER PO SCH ×2 (07:53→19:54)
[2020-04-30] MEDS: METOPROLOL SUCCINATE (ER) 25 MG TAB.ER.24H PO SCH ×2 (07:53→19:35)
[2020-04-30] MEDS: MULTIVITAMINS, THERA 1 EACH TAB PO SCH (07:54)
[2020-04-30] MEDS: THIAMINE 100 MG TAB PO SCH (07:54)
[2020-04-30] MEDS: PANTOPRAZOLE 40 MG/10 ML VIAL IVP SCH ×2 (08:27→19:54)
[2020-04-30] MEDS: MEROPENEM 1 GM in SODIUM CHLORIDE 0.9% 100 ML IVPB SCH ×2 (08:27→19:54)
[2020-04-30 09:16] LABS: African American GFR (CKD) 62.5 (60.0-200.0); Albumin 2.6 g/dL (3.80-4.90); Albumin/Globulin Ratio 1.44 (1.60-3.17); Anion Gap 8.7 mmol/L (4.00-12.00); Carbon Dioxide 21.3 mmol/L (21.6-31.8); Globulin 1.8 g/dL (1.6-3.3); Non-African American GFR(CKD) 53.9 (60.0-200.0); Potassium 4.9 mmol/L (3.5-5.5); Total Bilirubin 0.5 mg/dL (0.3-1.2); Total Protein 4.4 g/dL (6.2-8.2)
--- NOTE | 2020-04-30 10:24 | US ---
Ultrasound-guided paracentesis. DATE OF EXAM: 04/25/2020 CLINICAL HISTORY: Ascites The procedure was discussed with the patient. The risks, complications, benefits, and alternatives we re discussed and any questions were answered. Informed consent was obtained. The patient was placed s upine on the ultrasound table and prepped and draped in the usual sterile fashion. All elements of maximal barrier technique were utilized. Under ultrasound guidance, access into the right lower quadrant was obtained, via the paracentesis catheter system and direct ultrasound guidanc e. Approximately 5.4 liters of straw-colored fluid was removed. The patient was stable throughout the pr ocedure and remained stable upon discharge from Department of Radiology. IMPRESSION: Successful paracentesis under ultrasound guidance.
[2020-04-30 11:24] LABS: Glucose,Whole Blood 128 mg/dL (75-99)
[2020-04-30 15:43] VITALS: BMI 17.9
[2020-04-30 16:57] LABS: Glucose,Whole Blood 175 mg/dL (75-99)
--- NOTE | 2020-04-30 17:27 | P.PN ---
Subjective Significant wasting and weakness and dehydration, secondary to pancreatic cancer Pancreatic cancer, on chemotherapy Bilateral pleural effusion, possible pneumonia This is a 79-year-old female who was recently admitted with significant wasting, weakness, dehydration, and poor oral intake and is being closely monitored. Patient currently receiving treatments for pancreatic cancer and oncology is following closely. Patient underwent abdominal paracentesis and fluid analysis is currently pending. Patient is maintained on antibiotics in the form of Zithromax along with IV cefepime and will continue at this time. Blood cultures preliminary showing gram-negative bacilli and awaiting culture finalization and bacteremia clearance. Infectious disease is following. Patient continues to have extremely poor oral intake and needs encouragement. There is a possibility of discussion for enteric nutrition. Dietitian's are following. Patient is maintained on 40 mg of IV Lasix daily and will continue at this time. Patient continues to have bilateral lower extremity edema with inability to get up out of bed. PT/OT to evaluate the patient and awaiting recommendations. Patient continues to be lethargic and somewhat confused but is arousable and responding to simple commands. Patient is currently maintained on 4 L of oxygen via nasal cannula. Potassium found to be 3.1 and currently being replaced, current sodium is 146 and fluids have been discontinued. 04/27/2020 Patient is seen and evaluated in follow-up and continues to be closely monitored. Potassium was found to be critically low at 2.4 and is currently being replaced. Creatinine is 1.21 and sodium is 148. White blood count is also increased at 23.5. Multiple medical consultations including oncology following as patient is currently active and receiving treatments. Patient's oral intake continues to be poor and is on pured diet. Discussed with nursing staff to encourage oral intake and also discussed with the patient about the importance of increasing her oral intake. She continues to be a mobile and quite weak and lethargic with an overall poor prognosis. Patient's bilateral lower extremities in the ankle area continue to be 2+ pitting edema with s ignificant wasting noted. Cultures currently pending from fluid analysis. 04/28/2020 Patient is currently resting in the bed awake alert and oriented but does communicate slowly. Patient is cachectic and malnourished. Patient did have an episode of hypotension and rapid response team was called. Patient was given fluid boluses with improvement in blood pressure. Denied any complaints of chest pain or shortness of breath. No nausea vomiting or abdominal pain. Laboratory test showed WBC 25.9, hemoglobin 11.1 and platelets 110 Sodium 153, potassium 3.1 and chloride 119 and BUN 16 and creatinine 1.0 and magnesium 1.7 Patient is being followed by oncology. 04/29/2020 Patient is currently resting in the bed comfortably. Currently on tube feeding. Patient has been afebrile. Blood pressure is maintained. Otherwise sodium level is still at 153 today. Chloride 121 and IV fluids will be changed to D5 water. Renal function stable. WBC 26.2 Laboratory data showed WBC 26.2 Chest x-ray showed improvement in the bilateral lower lobe pneumonia compared to old exam. Mild pleural effusion unchanged. Patient is being continued on antibiotics in the form of meropenem due to ESBL E. coli bacteremia.. Current medications reviewed. 04/30/2020 Patient is tolerating tube feedings unable to answer any of my questions unable to get any kind of history from the patient patient the although does nod her head. It appears to be severely cachectic ill-looking. Significant muscle atrophy and muscle loss can use to have elevated white blood cell count and use to have significant electrolyte abnormalities appears to be dehydrated with dry mucous membranes patient is presently getting D5 water Review of systems: Unable to obtain due to her clinical condition All inpatient medications were reviewed and appropriate changes in these medications as dictated in the interval history and assessment and plan. Objective - Vital Signs Vital signs: Vital Signs Temp 97.4 F L 04/30/20 14:00 Pulse 58 L 04/30/20 14:00 Resp 10 L 04/30/20 14:00 BP 98/70 04/30/20 14:00 Pulse Ox 92 L 04/30/20 14:00 Intake & Output 04/29/20 04/30/20 04/30/20 18:59 06:59 18:59 Weight 38.555 kg 47.5 kg 47.5 kg Other: Voiding Method Indwelling Catheter Indwelling Catheter Indwelling Catheter - Exam PHYSICAL EXAMINATION: GENERAL: The patient is drowsy and arousable, ill-looking. Thin built cachectic female HEENT: Pupils are round and equally reacting to light. EOMI. No scleral icterus. No conjunctival pallor. Normocephalic, atraumatic. No pharyngeal erythema. No thyromegaly. CARDIOVASCULAR: S1 and S2 present. No murmurs, rubs, or gallops. PULMONARY: Unable to clearly assess ABDOMEN: Soft, nontender, nondistended, normoactive bowel sounds. No palpable organomegaly. MUSCULOSKELETAL: No joint swelling or deformity. EXTREMITIES: No cyanosis, clubbing, or pedal edema. NEUROLOGICAL: Unable to assess SKIN: No rashes. - Labs CBC & Chem 7: 04/29/20 07:09 04/30/20 06:10 Labs: Abnormal Lab Results - Last 24 Hours (Table) 04/30/20 04/30/20 04/30/20 Range/Units 00:37 06:09 06:10 Sodium 152 H (135-145) mmol/L Chloride 122 H (96-109) mmol/L Carbon Dioxide 21.3 L (21.6-31.8) mmol/L BUN 73.0 H (9.0-27.0) mg/dL Est GFR (CKD-EPI)NonAf 53.9 L (60.0-200.0) BUN/Creatinine Ratio 73.00 H (12.00-20.00) Ratio Glucose 135 H (70-110) mg/dL POC Glucose (mg/dL) 113 H 136 H (75-99) mg/dL Calcium 8.0 L (8.7-10.3) mg/dL AST 132 H (13-35) U/L ALT 142 H (8-44) U/L Alkaline Phosphatase 169 H (41-126) U/L Total Protein 4.4 L (6.2-8.2) g/dL Albumin 2.60 L (3.80-4.90) g/dL Albumin/Globulin Ratio 1.44 L (1.60-3.17) g/dL 04/30/20 04/30/20 Range/Units 11:22 16:56 Sodium (135-145) mmol/L Chloride (96-109) mmol/L Carbon Dioxide (21.6-31.8) mmol/L BUN (9.0-27.0) mg/dL Est GFR (CKD-EPI)NonAf (60.0-200.0) BUN/Creatinine Ratio (12.00-20.00) Ratio Glucose (70-110) mg/dL POC Glucose (mg/dL) 128 H 175 H (75-99) mg/dL Calcium (8.7-10.3) mg/dL AST (13-35) U/L ALT (8-44) U/L Alkaline Phosphatase (41-126) U/L Total Protein (6.2-8.2) g/dL Albumin (3.80-4.90) g/dL Albumin/Globulin Ratio (1.60-3.17) g/dL Microbiology - Last 24 Hours (Table) 04/25/20 12:25 Blood Culture - Preliminary Blood No Growth after 120 hours 04/27/20 07:54 Blood Culture - Preliminary Blood No Growth after 72 hours 04/25/20 15:30 Anaerobic Culture - Final Ascites Fluid 04/25/20 15:30 Gram Stain - Final Ascites Fluid Body Fluid Culture - Final Assessment and Plan Plan: Significant wasting and weakness and dehydration, secondary to pancreatic cancer Pancreatic cancer, on chemotherapy Bilateral pleural effusion, possible pneumonia meropenem, repeat blood cultures were negative E. 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 Patient probably will not tolerate resuscitation. Patient probably will not tolerate any kind of chemotherapy.
[2020-04-30] MEDS ORDERED: DEXTROSE 5% IN WATER 1,000 ML IV SCH (20:30)
--- NOTE | 2020-04-30 20:38 | XR ---
EXAMINATION TYPE: XR chest 1V portable DATE OF EXAM: 04/30/2020 COMPARISON: 04/28/2020 HISTORY: Pneumonia. Chest pain TECHNIQUE: FINDINGS: There is blunting of the costophrenic angles. There is mild pulmonary congestion. Heart is grossly enlarged. There is nasogastric tube in the stomach. There is right central venous catheter wi th tip in the superior vena cava. There are chest leads. IMPRESSION: There is bilateral lower lobe pneumonia with pleural effusions. This appears slightly wor se than last exam. There is mild pulmonary congestion but no obvious heart failure.
[2020-04-30 20:42] LABS: Glucose,Whole Blood 90 mg/dL (75-99)
--- NOTE | 2020-04-30 21:37 | P.PN ---
Subjective Progress Note Date: 04/30/20 Principal diagnosis: Declining performance, symptomatic ascites ALthough she is tolerating tube feedings and slowly increasing to goal, her overall status is not improving. She remains weak, noticeable muscular atrophy, lethargy. LFTs and electrolytes are abnormal. Objective - Vital Signs Vital signs: Vital Signs Temp 97.1 F L 04/30/20 20:10 Pulse 56 L 04/30/20 19:21 Resp 12 04/30/20 20:00 BP 114/79 04/30/20 20:00 Pulse Ox 100 04/30/20 20:00 Intake & Output 04/30/20 04/30/20 05/01/20 06:59 18:59 06:59 Weight 47.5 kg 47.5 kg Other: Voiding Method Indwelling Catheter Indwelling Catheter - Exam - Constitutional General appearance: cooperative - EENT Eyes: EOMI, PERRLA ENT: hard of hearing, NA/AT - Respiratory Respiratory: bilateral: diminished - Cardiovascular Rhythm: regularly irregular leg Peripheral Edema: bilateral: 1+ - Gastrointestinal General gastrointestinal: distended, soft, tenderness - Integumentary Integumentary: pale - Neurologic non focal - Musculoskeletal Musculoskeletal: generalized weakness - Labs CBC & Chem 7: 04/29/20 07:09 04/30/20 06:10 Labs: Abnormal Lab Results - Last 24 Hours (Table) 04/30/20 04/30/20 04/30/20 Range/Units 00:37 06:09 06:10 Sodium 152 H (135-145) mmol/L Chloride 122 H (96-109) mmol/L Carbon Dioxide 21.3 L (21.6-31.8) mmol/L BUN 73.0 H (9.0-27.0) mg/dL Est GFR (CKD-EPI)NonAf 53.9 L (60.0-200.0) BUN/Creatinine Ratio 73.00 H (12.00-20.00) Ratio Glucose 135 H (70-110) mg/dL POC Glucose (mg/dL) 113 H 136 H (75-99) mg/dL Calcium 8.0 L (8.7-10.3) mg/dL AST 132 H (13-35) U/L ALT 142 H (8-44) U/L Alkaline Phosphatase 169 H (41-126) U/L Total Protein 4.4 L (6.2-8.2) g/dL Albumin 2.60 L (3.80-4.90) g/dL Albumin/Globulin Ratio 1.44 L (1.60-3.17) g/dL 04/30/20 04/30/20 Range/Units 11:22 16:56 Sodium (135-145) mmol/L Chloride (96-109) mmol/L Carbon Dioxide (21.6-31.8) mmol/L BUN (9.0-27.0) mg/dL Est GFR (CKD-EPI)NonAf (60.0-200.0) BUN/Creatinine Ratio (12.00-20.00) Ratio Glucose (70-110) mg/dL POC Glucose (mg/dL) 128 H 175 H (75-99) mg/dL Calcium (8.7-10.3) mg/dL AST (13-35) U/L ALT (8-44) U/L Alkaline Phosphatase (41-126) U/L Total Protein (6.2-8.2) g/dL Albumin (3.80-4.90) g/dL Albumin/Globulin Ratio (1.60-3.17) g/dL Microbiology - Last 24 Hours (Table) 04/25/20 12:25 Blood Culture - Preliminary Blood No Growth after 120 hours 04/27/20 07:54 Blood Culture - Preliminary Blood No Growth after 72 hours 04/25/20 15:30 Anaerobic Culture - Final Ascites Fluid Assessment and Plan (1) Pancreatic cancer Narrative/Plan: Status POst Cycle one of MFOLFIRINOX - Details of diagnosis and circumstances in HPI - Currently on hold until control of current symptoms - Limited cancer burden, therefore feel continued aggressive care of symptoms has been attempted this admission although overall status has not improved. - Will await am assessment and discuss comfort measures and goals of care further with patients family. Current Visit: Yes Status: Acute Code(s): C25.9 - MALIGNANT NEOPLASM OF PANCREAS, UNSPECIFIED SNOMED Code(s): 278476521 (2) Abdominal ascites Narrative/Plan: - Status Post - Paracentesis today with Fluid for cytology, culture, and albumin - cytology negative for malignant cells Current Visit: Yes Status: Acute Code(s): R18.8 - OTHER ASCITES SNOMED Code(s): 458229096 Plan: Grisff and TF to continue at this time Discussion of goals of care as patients overall status not improvement. Physician attest: I have completed full history and physical and agree with above dictation, dictated as a scribe
--- NOTE | 2020-04-30 22:03 | PN ---
PROGRESS NOTE DATE OF SERVICE: 04/30/2020 REASON FOR FOLLOWUP: ESBL E coli bacteremia, likely abdominal source. INTERVAL HISTORY: The patient is afebrile. The patient remains sleepy, lethargic. Did have the NG. No vomiting or diarrhea has been reported. The patient is status post paracentesis with removal of 5 L of straw-colored fluid. PHYSICAL EXAMINATION: Her blood pressure is 101/72 with a pulse of 98, temperature 97.1. She is 99% on high- flow oxygen. General description is an elderly female lying in bed in no distress. RESPIRATORY SYSTEM: Unlabored breathing with decreased intensity of breath sounds. No wheeze. HEART: S1, S2. Regular rate and rhythm. ABDOMEN: Soft. EXTREMITIES: No edema of the feet. LABS: No CBC was done today. BUN of 73, creatinine 1.0. Liver enzymes are elevated. Blood culture repeat has been negative. DIAGNOSTIC IMPRESSION AND PLAN: Patient with extended-spectrum beta-lactamase Escherichia coli bacteremia. Source is likely abdominal. No other obvious focus. Patient is currently covered with meropenem tomorrow. In this patient with overall poor prognosis, hospice may be a better option. Continue with supportive care. MMODL / IJN: [id number] /
[2020-05-01 01:02] LABS: Glucose,Whole Blood 299 mg/dL (75-99)
[2020-05-01 05:10] VITALS: PULSE 110
[2020-05-01 06:13] LABS: Glucose,Whole Blood 206 mg/dL (75-99)
[2020-05-01] MEDS: ASPIRIN 81 MG PO SCH (06:59)
[2020-05-01] MEDS: ATORVASTATIN 20 MG TAB PO SCH (06:59)
[2020-05-01] MEDS: HEPARIN SODIUM,PORCINE 5,000 UNIT/ML 1 ML VIAL SQ SCH (06:59)
[2020-05-01 07:00] LABS: Basophils % (A) 0 %; Eosinophils # (A) 0.1 k/uL (0-0.7); Eosinophils % (A) 0 %; HCT 30.7 % (34.0-46.0); HGB 10.4 gm/dL (11.4-16.0); Lymphocytes # (A) 0.8 k/uL (1.0-4.8); Lymphocytes % (A) 3 %; MCH 32.9 pg (25.0-35.0); MCHC 33.9 g/dL (31.0-37.0); MCV 96.9 fL (80.0-100.0); Mean Platelet Volume 10.5; Monocytes # (A) 0.8 k/uL (0-1.0); Monocytes % (A) 3 %; Neutrophils # (A) 25.9 k/uL (1.3-7.7); Neutrophils % (A) 93 %; RBC 3.16 m/uL (3.80-5.40); RDW 15.4 % (11.5-15.5); WBC 27.7 k/uL (3.8-10.6)
[2020-05-01] MEDS: FOLIC ACID 1 MG TAB PO SCH (07:00)
[2020-05-01] MEDS: MEGESTROL 400 MG/10 ML CUP PO SCH (07:00)
[2020-05-01] MEDS: THIAMINE 100 MG TAB PO SCH (07:00)
[2020-05-01] MEDS: POTASSIUM CHLORIDE ER 20 MEQ TAB.ER PO SCH (07:00)
[2020-05-01] MEDS: LIDOCAINE-PRILOCAINE 2.5-2.5% CREAM 5 GM TUBE TOPICAL SCH (07:00)
[2020-05-01] MEDS: METOPROLOL SUCCINATE (ER) 25 MG TAB.ER.24H PO SCH (07:00)
[2020-05-01] MEDS: MULTIVITAMINS, THERA 1 EACH TAB PO SCH (07:00)
[2020-05-01] MEDS: PANTOPRAZOLE 40 MG/10 ML VIAL IVP SCH (07:07)
[2020-05-01] MEDS: MEROPENEM 1 GM in SODIUM CHLORIDE 0.9% 100 ML IVPB SCH (07:07)
[2020-05-01 07:18] LABS: Platelet Count 166 k/uL (150-450)
[2020-05-01 07:46] VITALS: RESP 11; TEMP 98.4
[2020-05-01 08:55] VITALS: BP 84/56
[2020-05-01 09:47] LABS: ALT 113 U/L (8-44); AST 83 U/L (13-35); African American GFR (CKD) 55.7 (60.0-200.0); Albumin/Globulin Ratio 1.56 (1.60-3.17); Alkaline Phosphatase 167 U/L (41-126); BUN/Creat Ratio 66.36 Ratio (12.00-20.00); C Reactive Protein <0.4 mg/dL (0.0-0.8); Calcium 7.8 mg/dL (8.7-10.3); Carbon Dioxide 19.9 mmol/L (21.6-31.8); Chloride 112 mmol/L (96-109); Globulin 1.6 g/dL (1.6-3.3); Glucose 199 mg/dL (70-110); Magnesium 1.8 mg/dL (1.5-2.4); Potassium 4.8 mmol/L (3.5-5.5); Sodium 141 mmol/L (135-145); Total Bilirubin 0.6 mg/dL (0.3-1.2); Total Protein 4.1 g/dL (6.2-8.2)
[2020-05-01 10:50] LABS: Anisocytosis (M) Present; Poikilocytosis (M) Present
[2020-05-01 10:51] LABS: RBC Fragments Present
--- NOTE | 2020-05-01 12:27 | P.DS ---
Providers Date of admission: 04/24/20 15:10 Expected date of discharge: 05/01/20 Attending physician: Modesto Sparrow Consults: 04/24/20 15:10 Consult Physician Routine Consulting Provider: Juarez Ivory Consult Reason/Comments: Multiple myeloma Do you want consulting provider notified?: Yes 04/25/20 11:32 Consult Physician Urgent Consulting Provider: Hola Ferguson Consult Reason/Comments: positive blood cultures Do you want consulting provider notified?: Yes Primary care physician: Erica Monroe Hospital Course: Final diagnosis Significant wasting and weakness and dehydration, secondary to pancreatic cancer Pancreatic cancer, on chemotherapy Bilateral pleural effusion, possible pneumonia, repeat blood cultures were negative E. coli bacteremia: Sepsis secondary to above Ruled out congestive heart failure, non-ischemic cardiomyopathy with an ejection fraction of 35-40% Increased white blood count, possible sepsis Thrombocytopenia Hypovolemic hypernatremia Acute renal failure secondary to dehydration Hyperchloremia secondary to dehydration Hypoalbuminemia with severe protein calorie malnutrition with a body mass index of 14.6 Increased AST Hypertension Gait dysfunction Hyperlipidemia Change in mental status, acute metabolic encephalopathy No code Discharge disposition Patient is being discharged and made inpatient hospice with comfort care measures. Family has met with [facility] and have signed the paperwork. She will be comfort measures only. Total time taken is greater than 35 minutes. History of present illness This is a 79-year-old female who was recently admitted with significant wasting and weakness along with dehydration secondary to pancreatic cancer and was being closely monitored. Multiple medical consultations following including oncology as patient was recently actively receiving treatments in the outpatient setting. Patient was also noted to have bacteremia with E. coli and was being evaluated by infectious disease and was continued on antibiotics. Patient continued to deteriorate and was not eating and was placed on tube feedings via NG although not tolerating. PT/OT evaluating the patient although patient was unable to work with them due to severe weakness and inability to get up out of the bed. Patient is currently on a nonrebreather breather at 15 L and is unresponsive. CODE STATUS was discussed with Alexander and Brian her sons and changed to no code. Case management consulted for hospice consult and family is agreeable with hospice to make her comfort measures only. Patient will be made inpatient with hospice today. Prognosis is poor. Please refer to previous dictations for further HPI. On exam vital signs are stable. Temp is 98.4F, pulse is 110, respirations are 11 and agonal, blood pressure is 84/56, oxygen saturation is 99% on 15 L via on nonbreather. Cardio S1, S2 are muffled. Respiratory system shows diminished breath sounds at the bases with scattered rhonchi and crackles noted. Abdomen is soft, thin, and nontender. Nervous system shows diffuse weakness. Please refer to medication reconciliation sheet for a list of medications. Patient Condition at Discharge: Poor Plan - Discharge Summary Discharge Rx Participant: Yes New Discharge Prescriptions: No Action Metoprolol Succinate (ER) [Toprol Xl] 25 mg PO BID Lidocaine-Prilocaine Cream [Emla Cream 2.5%/2.5%] 1 applic TOPICAL DAILY Atorvastatin Calcium [Lipitor] 20 mg PO DAILY Aspirin EC [Ecotrin Low Dose] 81 mg PO DAILY amLODIPine [Norvasc] 2.5 mg PO DAILY Discharge Medication List Aspirin EC [Ecotrin Low Dose] 81 mg PO DAILY 04/24/20 [History] Atorvastatin Calcium [Lipitor] 20 mg PO DAILY 04/24/20 [History] Lidocaine-Prilocaine Cream [Emla Cream 2.5%/2.5%] 1 applic TOPICAL DAILY 04/24/20 [History] Metoprolol Succinate (ER) [Toprol Xl] 25 mg PO BID 04/24/20 [History] amLODIPine [Norvasc] 2.5 mg PO DAILY 04/24/20 [History] Follow up Appointment(s)/Referral(s): Erica Monroe DO [Primary Care Provider] - 1-2 days [facility], [NON-STAFF] - As Needed Activity/Diet/Wound Care/Special Instructions: Patient will be signing on with [facility] Discharge Disposition: DISCH TO [facility]
--- NOTE | 2020-05-01 13:53 | P.PN ---
Subjective Progress Note Date: 05/01/20 Principal diagnosis: Declining performance, symptomatic ascites Patient without improvement after tube feedings, hospice care and goals of comfort are appropriate, they have met with hospice, we have discussed with family. Objective - Vital Signs Vital signs: Vital Signs Temp 98.4 F 05/01/20 07:45 Pulse 110 H 05/01/20 05:09 Resp 11 L 05/01/20 07:45 BP 84/56 05/01/20 08:55 Pulse Ox 99 05/01/20 07:45 Intake & Output 04/30/20 05/01/20 05/01/20 18:59 06:59 18:59 Output Total 100 Balance -100 Weight 47.5 kg Output: Urine 100 Other: Voiding Method Indwelling Catheter Indwelling Catheter Indwelling Catheter - Exam - Constitutional General appearance: cooperative, minimal responses to questions - EENT Eyes: EOMI, PERRLA ENT: hard of hearing, NA/AT - Respiratory Respiratory: bilateral: diminished - Cardiovascular Rhythm: regularly irregular leg Peripheral Edema: bilateral: 1+ - Gastrointestinal General gastrointestinal: distended, soft, tenderness - Integumentary Integumentary: pale - Neurologic non focal - Musculoskeletal Musculoskeletal: generalized weakness - Labs CBC & Chem 7: 05/01/20 06:37 05/01/20 06:37 Labs: Abnormal Lab Results - Last 24 Hours (Table) 04/30/20 05/01/20 05/01/20 Range/Units 16:56 01:01 06:01 WBC (3.8-10.6) k/uL RBC (3.80-5.40) m/uL Hgb (11.4-16.0) gm/dL Hct (34.0-46.0) % Neutrophils # (1.3-7.7) k/uL Lymphocytes # (1.0-4.8) k/uL Chloride (96-109) mmol/L Carbon Dioxide (21.6-31.8) mmol/L BUN (9.0-27.0) mg/dL Est GFR (CKD-EPI)AfAm (60.0-200.0) Est GFR (CKD-EPI)NonAf (60.0-200.0) BUN/Creatinine Ratio (12.00-20.00) Ratio Glucose (70-110) mg/dL POC Glucose (mg/dL) 175 H 299 H 206 H (75-99) mg/dL Calcium (8.7-10.3) mg/dL AST (13-35) U/L ALT (8-44) U/L Alkaline Phosphatase (41-126) U/L Total Protein (6.2-8.2) g/dL Albumin (3.80-4.90) g/dL Albumin/Globulin Ratio (1.60-3.17) g/dL 05/01/20 05/01/20 Range/Units 06:37 06:37 WBC 27.7 H (3.8-10.6) k/uL RBC 3.16 L (3.80-5.40) m/uL Hgb 10.4 L (11.4-16.0) gm/dL Hct 30.7 L (34.0-46.0) % Neutrophils # 25.9 H (1.3-7.7) k/uL Lymphocytes # 0.8 L (1.0-4.8) k/uL Chloride 112 H (96-109) mmol/L Carbon Dioxide 19.9 L (21.6-31.8) mmol/L BUN 73.0 H (9.0-27.0) mg/dL Est GFR (CKD-EPI)AfAm 55.7 L (60.0-200.0) Est GFR (CKD-EPI)NonAf 48.0 L (60.0-200.0) BUN/Creatinine Ratio 66.36 H (12.00-20.00) Ratio Glucose 199 H (70-110) mg/dL POC Glucose (mg/dL) (75-99) mg/dL Calcium 7.8 L (8.7-10.3) mg/dL AST 83 H (13-35) U/L ALT 113 H (8-44) U/L Alkaline Phosphatase 167 H (41-126) U/L Total Protein 4.1 L (6.2-8.2) g/dL Albumin 2.50 L (3.80-4.90) g/dL Albumin/Globulin Ratio 1.56 L (1.60-3.17) g/dL Microbiology - Last 24 Hours (Table) 04/27/20 07:54 Blood Culture - Preliminary Blood No Growth after 96 hours 04/25/20 12:25 Blood Culture - Preliminary Blood No Growth after 120 hours Assessment and Plan (1) Pancreatic cancer Narrative/Plan: Status POst Cycle one of MFOLFIRINOX - Details of diagnosis and circumstances in HPI - Currently on hold until control of current symptoms - Limited cancer burden, therefore feel continued aggressive care of symptoms has been attempted this admission although overall status has not improved. - Discussion with patients family regarding comfort measures and goals of care, family agreeable to hospice, they have been consulted by primary team and plan for discharge to hospice inpatient care at this time Status: Acute Code(s): C25.9 - MALIGNANT NEOPLASM OF PANCREAS, UNSPECIFIED SNOMED Code(s): 929235383 (2) Abdominal ascites Status: Acute Code(s): R18.8 - OTHER ASCITES SNOMED Code(s): 022307875
== END 2020-05-01 12:44 | disposition hospice, inpatient (51) | DRG 871 ==
LOC: EC 12:15 → 4SSUR 15:10
PROVIDERS: ADMIT Hospitalist; ATTEND Hospitalist
PROC: 0W9G3ZX Drainage of Peritoneal Cavity, Percutaneous Approach, Diagnostic (ICD-10-PCS; principal; 2020-04-30)
DX: A41.51 Sepsis due to Escherichia coli [E. coli] (principal); E43 Unspecified severe protein-calorie malnutrition; J18.9 Pneumonia, unspecified organism; G93.41 Metabolic encephalopathy; R64 Cachexia; C25.9 Malignant neoplasm of pancreas, unspecified; I42.8 Other cardiomyopathies; R18.8 Other ascites; E87.0 Hyperosmolality and hypernatremia; N17.9 Acute kidney failure, unspecified; J90 Pleural effusion, not elsewhere classified; J44.0 Chronic obstructive pulmonary disease with (acute) lower respiratory infection; Z68.1 Body mass index [BMI] 19.9 or less, adult; Z16.12 Extended spectrum beta lactamase (ESBL) resistance; D69.6 Thrombocytopenia, unspecified; R65.20 Severe sepsis without septic shock; E87.8 Other disorders of electrolyte and fluid balance, not elsewhere classified; I95.9 Hypotension, unspecified; I44.7 Left bundle-branch block, unspecified; E86.0 Dehydration; E87.6 Hypokalemia; I08.1 Rheumatic disorders of both mitral and tricuspid valves; I10 Essential (primary) hypertension; E78.5 Hyperlipidemia, unspecified; Z66 Do not resuscitate; Z51.5 Encounter for palliative care; Z20.828 Contact with and (suspected) exposure to other viral communicable diseases; E86.1 Hypovolemia; R19.7 Diarrhea, unspecified; R11.0 Nausea; R26.9 Unspecified abnormalities of gait and mobility; H91.90 Unspecified hearing loss, unspecified ear; Z79.82 Long term (current) use of aspirin; Z79.899 Other long term (current) drug therapy; Z90.49 Acquired absence of other specified parts of digestive tract; Z90.710 Acquired absence of both cervix and uterus; Z87.19 Personal history of other diseases of the digestive system; Z87.42 Personal history of other diseases of the female genital tract; Z98.890 Other specified postprocedural states; Z87.891 Personal history of nicotine dependence; Z92.21 Personal history of antineoplastic chemotherapy
CPT/HCPCS: 36415; 36600; 49083; 51701; 70450; 71045; 71046; 71250; 74176; 80048; 80053; 81003; 82040; 82150; 82247; 82310; 82533; 82805; 82945; 83605; 83690; 83735; 83880; 84075; 84100; 84132; 84155; 84157; 84450; 84460; 84484; 85025; 85610; 85730; 86140; 87040; 87070; 87075; 87077; 87186; 87205; 87635; 88108; 88305; 89050; 93005; 93306; 96361; 96365; 96375; 99285

== ENCOUNTER 2020-05-01 12:45 | Inpatient (IN) | payer MEDICAID ==
[2020-05-01] MEDS ORDERED: LORazepam 2 MG/ML INJ IV PRN (12:56)
[2020-05-01] MEDS ORDERED: ATROPINE OPHTH SOLN 1% 5ML BTL SUBLINGUAL PRN (12:56)
[2020-05-01] MEDS ORDERED: MORPHINE SULFATE (100 MG/2 ML) 100 MG in SODIUM CHLORIDE 0.9% 100 ML IV SCH (13:00)
[2020-05-01] MEDS ORDERED: SCOPOLAMINE 1.5MG/72HR PATCH TRANSDERM SCH (13:00)
--- NOTE | 2020-05-01 14:24 | P.HPIM ---
History of Present Illness H&P Date: 05/01/20 This is a 79-year-old female who was recently admitted with significant wasting along with weakness and dehydration secondary to pancreatic cancer currently on chemotherapy and was being closely monitored. She was also noted to have bilateral pleural effusions with possible pneumonia. Multiple medical consultations following and patient was maintained on IV antibiotic therapy. Blood cultures preliminary showing gram-negative bacilli finalized showing E. coli and patient was maintained on IV antibiotic therapy. Patient continued to have extremely poor oral intake and remained quite weak and lethargic. Patient was unable to get out of bed and work with physical therapy. Prognosis remained extremely poor. Oral intake continue to deteriorate until she became unable to anything and was placed on tube feedings via NG tube. Patient continued to have abnormal labs with sodium being elevated and potassium low and magnesium low as well. Patient continue to have an elevated white blood count and was continued on antibiotics. Most recent x-rays showed bilateral lower lobe pneumonia and pleural effusions. Patient recently underwent paracentesis with no real improvement. Patient remained a full code and discussed in length with patient's sons Alexander and Brian and they have agreed with hospice and comfort care measures only as patient local status continued to deteriorate and was currently maintained on 15 L nonrebreather with agonal respirations. Patient was made a no code and will be signing on to hospice inpatient today. Review of systems unable to obtain as patient is unresponsive Review of Systems Unable to obtain due to current clinical status and unresponsiveness ROS unobtainable: due to mental status Past Medical History Past Medical History: Hyperlipidemia, Hypertension Additional Past Medical History / Comment(s): pancreatic cancer History of Any Multi-Drug Resistant Organisms: ESBL Date of last positivie culture/infection: 04/24/20 MDRO Source:: ESBL BLOOD Past Surgical History: Cholecystectomy, Hysterectomy Past Anesthesia/Blood Transfusion Reactions: No Reported Reaction Past Psychological History: No Psychological Hx Reported Smoking Status: Unknown if ever smoked Past Alcohol Use History: None Reported Past Drug Use History: None Reported - Past Family History Father Family Medical History: No Reported History Son(s) Family Medical History: No Reported History Medications and Allergies Home Medications Medication Instructions Recorded Confirmed Type Aspirin EC [Ecotrin Low Dose] 81 mg PO DAILY 04/24/20 05/01/20 History Atorvastatin Calcium [Lipitor] 20 mg PO DAILY 04/24/20 05/01/20 History Lidocaine-Prilocaine Cream [Emla 1 applic TOPICAL DAILY 04/24/20 05/01/20 History Cream 2.5%/2.5%] Metoprolol Succinate (ER) [Toprol 25 mg PO BID 04/24/20 05/01/20 History Xl] amLODIPine [Norvasc] 2.5 mg PO DAILY 04/24/20 05/01/20 History Allergies Allergy/AdvReac Type Severity Reaction Status Date / Time No Known Allergies Allergy Verified 04/24/20 13:39 Physical Exam Vitals: Intake and Output 04/30/20 05/01/20 05/01/20 22:59 06:59 14:59 Other: Weight 47.5 kg GENERAL: The patient is unresponsive, ill-looking. Thin built cachectic female HEENT: Pupils are round and equally reacting to light. EOMI. No scleral icterus. No conjunctival pallor. Normocephalic, atraumatic. No pharyngeal erythema. No thyromegaly. Oral mucosa is dry with nonrebreather noted CARDIOVASCULAR: S1 and S2 present. No murmurs, rubs, or gallops. PULMONARY: Diminished bilaterally with scattered rhonchi noted ABDOMEN: Soft, nontender, nondistended, normoactive bowel sounds. No palpable organomegaly. MUSCULOSKELETAL: No joint swelling or deformity. EXTREMITIES: No cyanosis, clubbing, or pedal edema. NEUROLOGICAL: Unable to assess, unresponsive SKIN: No rashes. Assessment and Plan Assessment: Significant wasting and weakness and dehydration, secondary to pancreatic cancer Pancreatic cancer, recently on on chemotherapy Bilateral pleural effusion, possible pneumonia E. coli bacteremia Sepsis secondary to above Ruled out congestive heart failure, non-ischemic cardiomyopathy with an ejection fraction of 35-40% Increased white blood count, possible sepsis Thrombocytopenia Hypovolemic hypernatremia Acute renal failure secondary to dehydration Hyperchloremia secondary to dehydration Hypoalbuminemia with severe protein calorie malnutrition with a body mass index of 14.6 Increased AST Hypertension Gait dysfunction Hyperlipidemia Change in mental status, acute metabolic encephalopathy No code Plan: Patient is being admitted to hospice with [facility] and will continue with comfort measures only. Ruby Serrano here with the patient and have signed on with [facility]. Continue with comfort measures only. Poor prognosis. Will continue to follow closely.
== END 2020-05-01 14:43 | disposition expired | DRG 951 ==
LOC: 4SSUR 12:45
PROVIDERS: ADMIT Hospitalist; ATTEND Hospitalist
DX: Z51.5 Encounter for palliative care (principal); A41.51 Sepsis due to Escherichia coli [E. coli]; E43 Unspecified severe protein-calorie malnutrition; G93.41 Metabolic encephalopathy; E87.0 Hyperosmolality and hypernatremia; J90 Pleural effusion, not elsewhere classified; N17.9 Acute kidney failure, unspecified; Z68.1 Body mass index [BMI] 19.9 or less, adult; C25.9 Malignant neoplasm of pancreas, unspecified; D69.6 Thrombocytopenia, unspecified; E78.5 Hyperlipidemia, unspecified; E86.0 Dehydration; E86.1 Hypovolemia; E87.8 Other disorders of electrolyte and fluid balance, not elsewhere classified; I10 Essential (primary) hypertension; Z79.82 Long term (current) use of aspirin; Z79.899 Other long term (current) drug therapy; Z90.710 Acquired absence of both cervix and uterus; Z90.49 Acquired absence of other specified parts of digestive tract; R26.9 Unspecified abnormalities of gait and mobility; E88.09 Other disorders of plasma-protein metabolism, not elsewhere classified; Z66 Do not resuscitate